=== PATIENT | male | born 1965 | race Caucasian/White ===

== ENCOUNTER 2019-05-21 16:50 | Inpatient (IN) | payer MEDICARE, OTHER ==
--- NOTE | 2019-05-21 16:57 | PDOC ---
Rapid Medical Evaluation Time Seen by Provider: 05/21/19 16:52 Medical Evaluation: 05/21/19 16:53 I have performed a brief in-person evaluation of this patient. The patient presents with a chief complaint of:Lower abd pain today. No dysuria , change in BM, n/v/f/c. Denies any pmhx Pertinent physical exam findings:Unremarkable I have ordered the following:labs/UA The patient will proceed to the ED for further evaluation. Discharge Disposition - Diagnosis Abdominal pain Qualifiers: Abdominal location: unspecified location Qualified Code(s): R10.9 - Unspecified abdominal pain - Referrals - Patient Instructions - Post Discharge Activity
[2019-05-21] MEDS ORDERED: SODIUM CHLORIDE 1,000 ML IV STA (18:02)
--- NOTE | 2019-05-21 18:02 | PDOC ---
History of Present Illness - General Chief Complaint: Pain, Acute Stated Complaint: ABD PAIN Time Seen by Provider: 05/21/19 16:52 Past History - Travel Traveled outside of the country in the last 30 days: No Close contact w/someone who was outside of country & ill: No - Past Medical History Allergies/Adverse Reactions: Allergies Allergy/AdvReac Type Severity Reaction Status Date / Time No Known Allergies Allergy Verified 05/21/19 19:07 Home Medications: Ambulatory Orders Metformin HCl [Glucophage] 500 mg PO BID 05/22/19 - Suicide/Smoking/Psychosocial Hx Smoking History: Never smoked Hx Alcohol Use: No Drug/Substance Use Hx: No Review of Systems - Review of Systems Able to Perform ROS?: Yes Comments:: 05/21/19 18:31 CONSTITUTIONAL: Absent: fever, chills, diaphoresis, generalized weakness, malaise, loss of appetite HEENT: Absent: rhinorrhea, nasal congestion, throat pain, throat swelling, difficulty swallowing, mouth swelling, ear pain, eye pain, visual Changes CARDIOVASCULAR: Absent: chest pain, loss of consciousness, palpitations, irregular heart rate, peripheral edema RESPIRATORY: Absent: cough, shortness of breath, dyspnea with exertion, orthopnea, wheezing, stridor, hemoptysis GASTROINTESTINAL: Present: abdominal pain Absent: abdominal distension, nausea, vomiting, diarrhea, constipation, melena, hematochezia GENITOURINARY: Absent: dysuria, frequency, urgency, hesitancy, hematuria, flank pain, genital pain MUSCULOSKELETAL: Absent: myalgia, arthralgia, joint swelling SKIN: Absent: rash, itching, pallor HEMATOLOGIC/IMMUNOLOGIC: Absent: easy bleeding, easy bruising, lymphadenopathy, frequent infections ENDOCRINE: Absent: unexplained weight gain, unexplained weight loss, heat intolerance, cold intolerance NEUROLOGIC: Absent: headache, focal weakness or paresthesias, dizziness, unsteady gait, seizure, mental status changes, bladder or bowel incontinence PSYCHIATRIC: Absent: anxiety, depression, suicidal or homicidal ideation, hallucinations. Is the patient limited Chinese proficient: No *Physical Exam - Vital Signs Last Vital Signs Temp Pulse Resp BP Pulse Ox 98.3 F 79 18 140/85 97 05/21/19 16:55 05/21/19 16:55 05/21/19 16:55 05/21/19 16:55 05/21/19 16:55 - Physical Exam Comments: 05/21/19 18:31 GENERAL: Well developed, well nourished. Awake and alert. No acute distress. HEENT: Normocephalic, atraumatic. PERRLA, EOMI. No conjunctival pallor. Sclera are non- icteric. Moist mucous membranes. Oropharynx is clear. NECK: Supple. Full ROM. No JVD. Carotid pulses 2+ and symmetric, without bruits. No thyromegaly. No lymphadenopathy. CARDIOVASCULAR: Regular rate and rhythm. No murmurs, rubs, or gallops. Distal pulses are 2+ and symmetric. PULMONARY: No evidence of respiratory distress. Lungs clear to auscultation bilaterally. No wheezing, rales or rhonchi. ABDOMINAL: TTP of the R lower quadrant into the R adnexal area, with palpable mass which is non-reducible. Guarding of the RLQ. Soft. Non-distended. No organomegaly. Normoactive bowel sounds. MUSCULOSKELETAL Normal range of motion at all joints. No bony deformities or tenderness. No CVA tenderness. EXTREMITIES: No cyanosis. No clubbing. No edema. No calf tenderness. SKIN: Warm and dry. Normal capillary refill. No rashes. No jaundice. NEUROLOGICAL: Alert, awake, appropriate. Cranial nerves 2-12 intact. No deficits to light touch and temperature in face, upper extremities and lower extremities. No motor deficits in the in face, upper extremities and lower extremities. Normoreflexic in the upper and lower extremities. Normal speech. Toes are down- going bilaterally. Gait is normal without ataxia. PSYCHIATRIC: Cooperative. Good eye contact. Appropriate mood and affect. ED Treatment Course - LABORATORY CBC & Chemistry Diagram: 05/22/19 01:05 05/21/19 18:00 Medical Decision Making - Medical Decision Making 05/21/19 19:25 The patient is a 53-year-old male with past medical history of non-insulin dependent diabetes, who presents to the ER today with 2 weeks of right lower abdominal pain. He states that he feels like a lump is there. He states that the pain is consistently gotten worse over the last 2 weeks. He denies urinary symptoms, fever. His last bowel movement was 11am this morning. Denies fevers, chills, nausea, vomiting, urinary symptoms, diarrhea and constipation. A/P: Lower quadrant pain On exam patient with a nonreducible mass over the right lower quadrant into the right adnexal region. This is very tender to palpation. Suspect hernia, strangulated versus incarcerated? Basic labs, lactic acid, CTAP with oral contrast ordered Dr. Prieto made aware of patient Anticipated admission. Sign out given to DL Miner Pt finished drinking contrast at 19:25 *DC/Admit/Observation/Transfer Diagnosis at time of Disposition: Inguinal hernia, SBO (small bowel obstruction) - Discharge Dispostion Condition at time of disposition: Improved - Referrals - Patient Instructions - Post Discharge Activity
[2019-05-21 18:14] LABS: BASO % 0.3 % (0-2.0); EOS % 0.1 % (0-4.5); HEMATOCRIT 51.6 % (35.4-49); HEMOGLOBIN 17.6 GM/dL (11.7-16.9); LYMPH % 7.1 % (8-40); MCH 31.2 pg (25.7-33.7); MCHC 34.1 g/dl (32.0-35.9); MEAN CELL VOLUME 91.4 fl (80-96); MEAN PLT VOLUME 9.8 fl (7.5-11.1); MONO % 3.4 % (3.8-10.2); NEUT % 89.1 % (42.8-82.8); PLATELET COUNT 166 K/MM3 (134-434); RBC 5.64 M/mm3 (4.00-5.60); RDW 13.4 % (11.9-15.9); WHITE BLOOD COUNT 14.9 K/mm3 (4.0-10.0)
[2019-05-21 18:32] LABS: INR 1.07 (0.83-1.09); PROTHROMBIN TIME (PATIENT) 12.6 SEC (9.7-13.0)
[2019-05-21 18:50] LABS: BILIRUBIN,TOTAL 0.7 mg/dL (0.2-1); BLOOD UREA NITROGEN 17.8 mg/dL (7-18); CREATININE 0.9 mg/dL (0.55-1.3); TOT PROT 8.1 g/dl (6.4-8.2)
[2019-05-21 19:00] LABS: EPI CELLS 0.3 /HPF (0-5/HPF); HYALINE CASTS 1 /lpf (0-8); PH,URINE 5.5 (5.0-8.0); URINE APPEARANCE CLEAR; URINE BACTERIA 1.5 /hpf (NEGATIVE); URINE BILIRUBIN NEGATIVE (NEGATIVE); URINE COLOR YELLOW; URINE GLUCOSE (UA) 3+ (NEGATIVE); URINE KETONE TRACE (NEGATIVE); URINE LEUK ESTERASE NEGATIVE (NEGATIVE); URINE NITRITE NEGATIVE (NEGATIVE); URINE PROTEIN 1+ (NEGATIVE); URINE RBC 1 /hpf (0-4); URINE WBC 0 /hpf (0-5)
[2019-05-21] MEDS ORDERED: morphine CARPU-JECT 4 MG/1 ML DISP.SYRIN IVPUSH ONE (19:45)
--- NOTE | 2019-05-21 19:47 | PDOC ---
*Physical Exam - Vital Signs Last Vital Signs Temp Pulse Resp BP Pulse Ox 98.3 F 79 18 140/85 97 05/21/19 16:55 05/21/19 16:55 05/21/19 16:55 05/21/19 16:55 05/21/19 16:55 ED Treatment Course - LABORATORY CBC & Chemistry Diagram: 05/21/19 18:00 05/21/19 18:00 - ADDITIONAL ORDERS Additional order review: Laboratory Results 05/21/19 05/21/19 05/21/19 18:11 18:05 18:00 PT with INR 12.60 INR 1.07 Sodium 136 Potassium 4.0 Chloride 102 Carbon Dioxide 27 Anion Gap 8 BUN 17.8 Creatinine 0.9 Est GFR (CKD-EPI)AfAm 114.21 Est GFR (CKD-EPI)NonAf 98.54 Random Glucose 220 H Calcium 9.0 Total Bilirubin 0.7 AST 17 ALT 31 Alkaline Phosphatase 88 Total Protein 8.1 Albumin 4.0 Urine Color Yellow Urine Appearance Clear Urine pH 5.5 Ur Specific [place] 1.038 H Urine Protein 1+ H Urine Glucose (UA) 3+ H Urine Ketones Trace H Urine Blood Negative Urine Nitrite Negative Urine Bilirubin Negative Urine Urobilinogen 1.0 Ur Leukocyte Esterase Negative Urine WBC (Auto) 0 Urine RBC (Auto) 1 Urine Casts (Auto) 1 U Epithel Cells (Auto) 0.3 Urine Bacteria (Auto) 1.5 05/21/19 18:00 RBC 5.64 H MCV 91.4 MCHC 34.1 RDW 13.4 MPV 9.8 Neutrophils % 89.1 H Lymphocytes % 7.1 L Monocytes % 3.4 L Eosinophils % 0.1 Basophils % 0.3 - Medications Given in the ED: ED Medications Discontinued Medications Generic Name Dose Route Start Last Admin Trade Name Freq PRN Reason Stop Dose Admin Sodium Chloride 1,000 mls @ 1,000 mls/hr 05/21/19 18:02 05/21/19 18:59 Normal Saline - IV 05/21/19 19:01 1,000 mls/hr ASDIR STA Administration Medical Decision Making - Medical Decision Making Patient signed out to me by DL Caceres Patient pending CT A/P to r/o possible incarcerated vs strangulated hernia Patient mentions stilling having pain, currently 07/10 Will give Morphine [address] A/P around 9 PM 05/21/19 19:45 CT A/P showed R inguinoscrotal hernia with small bowel and proximal SBO; also shows small portion of urinary bladder herniating into R inguinal canal D/W Dr. Prieto, who recommends also involving urology Urology paged x3, pending to hear back 05/21/19 23:[address] Morris, who states nothing urgent to do for now; will see patient tomorrow Will admit patient 05/21/19 23:30 *DC/Admit/Observation/Transfer Diagnosis at time of Disposition: SBO (small bowel obstruction) Inguinal hernia Qualifiers: Obstruction and gangrene presence: without obstruction or gangrene Laterality: unilateral Recurrence: non-recurrent Qualified Code(s): K40.90 - Unilateral inguinal hernia, without obstruction or gangrene, not specified as recurrent - Discharge Dispostion Condition at time of disposition: Stable Decision to Admit order: Yes - Referrals Referrals: Renita Zimmer MD [Primary Care Provider] - - Patient Instructions - Post Discharge Activity
[2019-05-21] MEDS ORDERED: morphine SULFATE 4 MG/ML VIAL ONE (20:12)
--- NOTE | 2019-05-21 23:37 | PN ---
Teaching Attending Note Name of Resident: Jonah Foreman ATTENDING PHYSICIAN STATEMENT I saw and evaluated the patient. I reviewed the resident's note and discussed the case with the resident. I agree with the resident's findings and plan as documented. SUBJECTIVE: Patient is a 53 year old man with PMH of NIDDM who presents to the ER with 2 weeks of right lower abdominal pain. He states that he feels like a lump is there. He states that the pain has consistently gotten worse over the last 2 weeks. He denies urinary symptoms, fever. His last bowel movement was 11 am toady and it was normal - soft, brown with no blood. Denies fevers, chills, nausea, vomiting, urinary symptoms, diarrhea and constipation. No prior abdominal surgery. Denies any illicit drug use or ingestion of unusual or street food. OBJECTIVE: Alert Vital Signs Period Temp Pulse Resp BP Sys/Vinson Pulse Ox Last 24 Hr 98.3 F-98.3 F 70-79 16-18 133-140/70-85 97 HEENT: No Jaundice, eye redness or discharge, PERRLA, EOMI. Normocephalic, atraumatic. External ears are normal and hearing is grossly intact. No nasal discharge. Neck: Supple, nontender. No palpable adenopathy or thyromegaly. No JVD Chest: Good effort. Clear to auscultation and percussion. Heart: Regular. No S3, rub or murmur Abdomen: Not distended, soft, nonreducible mass over the right lower quadrant into the right adnexal region - tender to palpation; no HSM. No rebound or guarding. Normal bowel sounds. Ext: Peripheral pulses intact. No leg edema. Skin: Warm and dry. No petechiae, rash or ecchymosis. Neuro: Alert. Oriented x3. CN 2-12 grossly intact. Sensation grossly intact in all four extremities and DTR are symmetric. Psych: Appropriate mood and affect. Good insight. Abnormal Lab Results 05/21/19 05/21/19 05/21/19 18:00 18:00 18:11 WBC 14.9 H RBC 5.64 H Hgb 17.6 H Hct 51.6 H Absolute Neuts (auto) 13.3 H Neutrophils % 89.1 H Lymphocytes % 7.1 L Monocytes % 3.4 L Random Glucose 220 H Ur Specific [place] 1.038 H Urine Protein 1+ H Urine Glucose (UA) 3+ H Urine Ketones Trace H ASSESSMENT AND PLAN: 1. Small bowel obstruction - CT scan of Abdomen/Pelvis with IV and PO contrast showed right inguinoscrotal hernia with small bowel and proximal Small bowel obstruction; also shows small portion of urinary bladder herniating into R inguinal canal. ER staff discussed case with both the surgeon and the urologist who will see the patient in the morning. Will use IV morphine for pain control, get EKG, CXR and lactic acid level. Erythrocytosis (?hemoconcentration) and increased urine specific gravity signal dehydration possibly due to osmotic diuresis induced by hyperglycemia. Patient got IV NS and IV mrophine in the ER. Will continue IV NS and repeat CBC. Leukocytosis is unexplained - may be due to stress. He is afebrile and does not have tachycardia. There is no obvious source of infection. Will not give antibiotics at this time - will repeat CBC. 2. Uncontrolled DM For now, we will hold the home diabetes drugs and implement sliding scale insulin regimen. Provide comprehensive diabetes care with patient teaching and counseling about the importance of adherence to prescribed diabetes regimen, euglycemia, eye care and foot care. 3. Overweight - Counseled on the risks associated with being overweight. Will provide patient all the necessary assistance, counseling and positive reinforcement to facilitate weight loss. Consult brush painter. 4. DVT prophylaxis - SCD for now i case he needs surgery; Lovenox 40 mg SQ q 24 hours post ?procedure. 5. Advance directives - Full code
--- NOTE | 2019-05-22 00:12 | CONSULT ---
Consult Consult Specialty:: General Surgery Reason for Consultation:: incarcerated right inguinal hernia - History of Present Illness Chief Complaint: right groin pain History of Present Illness: 53 yo male PMH NIDDM who presented to ED due to pain and swelling in his right groin. He states that he has never experienced this before other than a brief episode in the same area approximately 2 weeks ago which remitted on its own. Pt states he feels like a lump is in his groin. he reports that it first occured at work, he works as an automobile repossessor. Pain is constant and sharp. Last bowel movement was this am around 11. Patient denies fever, nausea/vomiting/ fever/chills, urinary symptoms, or constipation. we were asked to assess. - History Source History Provided By: Patient, Medical Record Limitations to Obtaining History: No Limitations - Alcohol/Substance Use Hx Alcohol Use: No - Smoking History Smoking history: Never smoked Home Medications - Allergies Allergies/Adverse Reactions: Allergies Allergy/AdvReac Type Severity Reaction Status Date / Time No Known Allergies Allergy Verified 05/21/19 19:07 - Home Medications Home Medications: Ambulatory Orders Metformin HCl [Glucophage] 500 mg PO BID 05/22/19 Review of Systems - Review of Systems Constitutional: denies: Chills, Fever Eyes: denies: Blind Spots, Other HENT: denies: Difficult Swallowing, Toothache Neck: denies: Decreased ROM, Tenderness Cardiovascular: denies: Chest Pain, Palpitations Respiratory: denies: Cough, SOB Gastrointestinal: denies: Abdominal Pain, Constipation, Diarrhea Genitourinary: denies: Discharge, Dysuria Musculoskeletal: denies: Extremity Pain, Muscle Pain Integumentary: denies: Eczema, Lump, Pruritis Neurological: denies: Syncope, Tremors Endocrine: denies: Unexplained Weight Gain, Unexplained Weight Loss Hematology/Lymphatic: denies: Easily Bruised, Excessive Bleeding Psychiatric: denies: Anxiety, Depression Physical Exam Vital Signs: Vital Signs Temperature 98.3 F 05/21/19 20:20 Pulse Rate 70 05/21/19 20:20 Respiratory Rate 16 05/21/19 20:20 Blood Pressure 133/70 05/21/19 20:20 O2 Sat by Pulse Oximetry (%) 97 05/21/19 16:55 Vital Signs Period Temp Pulse Resp BP Sys/Vinson Pulse Ox Last 24 Hr 98.3 F-98.6 F 60-79 16-20 133-148/70-85 95-97 Intake & Output 05/21/19 05/22/19 05/22/19 23:59 07:59 15:59 Intake Total 415 1000 Balance 415 1000 Weight 190 lb 188 lb 9 oz Intake: IV 365 1000 LACTATED RINGERS SOLUTION 365 1000 1,000 ml In 1,000 ml @ 83 mls/hr IV ASDIR JODIE Rx #:[id number] IVPB 50 Oral 0 Other: Voiding Method Urinal Urinal # Unmeasured Voids Void 2 Height 5 ft 7 in 5 ft 7 in Body Mass Index (BMI) 29.7 29.5 Weight Measurement Method Built in [facility] Constitutional: Yes: Well Nourished, No Distress, Calm Eyes: Yes: Conjunctiva Clear, EOM Intact HENT: Yes: Atraumatic, Normocephalic Neck: Yes: Supple, Trachea Midline Cardiovascular: Yes: Regular Rate and Rhythm, S1, S2 Respiratory: Yes: Regular, CTA Bilaterally Gastrointestinal: Yes: Normal Bowel Sounds, Soft, Abdomen, Obese, Distention, Hernia (Right inguinal hernia), Tenderness ...Rectal Exam: Yes: Sphincter Tone Normal. No: Hemorrhoids/External, Hemorrhoids/Internal, Mass Renal/: No: CVA Tenderness - Left, CVA Tenderness - Right Musculoskeletal: No: Muscle Pain, Muscle Weakness Extremities: No: Cool, Cyanosis Edema: No Peripheral Pulses WNL: Yes Integumentary: No: Jaundice, Laceration Neurological: Yes: Alert, Oriented Psychiatric: Yes: Alert, Oriented Labs: CBC, BMP 05/21/19 18:00 05/21/19 18:00 Imaging - Results Cat Scan: Report Reviewed, Image Reviewed (loop of intestines and a corner of the bladder) Problem List - Problems (1) Incarcerated right inguinal hernia Assessment/Plan: 53 yo female with an incarcerated right inguinal hernia acute NPO and IVF hydration IV antibiotics OR for right inguinal hernia repair with mesh, possible bowel ressection Discussed with patient risks, benefits and alternatives of laparoscopic possible open ectomy, including but not limited to bleeding, infection, injury to adjacent structures, leak or injury, intraabdominal abscess, incisional hernia, need for further procedures, ; alternatives include antibiotics, delayed or no surgery - risks of this include failure of nonoperative therapy, perforation, sepsis, recurrence, . Patient desires to proceed with operation - will take to OR for above. Informed consent signed for same. Thank you for the opportunity to participate in the care of this patient. Discussed with patient risks, benefits and alternatives of laparoscopic possible open ectomy, including but not limited to bleeding, infection, injury to adjacent structures, leak or injury, intraabdominal abscess, incisional hernia, need for further procedures, ; alternatives include antibiotics, delayed or no surgery - risks of this include failure of nonoperative therapy, perforation, sepsis, recurrence, . Patient desires to proceed with operation - will take to OR for above. Informed consent signed for same. Code(s): K40.30 - UNIL INGUINAL HERNIA, W OBST, W/O GANGR, NOT SPCF RECUR (2) Diabetes Code(s): E11.9 - TYPE 2 DIABETES MELLITUS WITHOUT COMPLICATIONS Qualifiers: Diabetes mellitus type: type 2 (3) Work related injury Code(s): Y99.0 - CIVILIAN ACTIVITY DONE FOR INCOME OR PAY (4) Right groin pain Code(s): R10.31 - RIGHT LOWER QUADRANT PAIN (5) SBO (small bowel obstruction) Code(s): K56.609 - UNSP INTESTNL OBST, UNSP TO PARTIAL VERSUS COMPLETE OBST
--- NOTE | 2019-05-22 00:24 | HP ---
CHIEF COMPLAINT: Right lower abdominal pain PCP: Dr Zimmer HISTORY OF PRESENT ILLNESS: Pt is a 53 y/o M with a significant past medical history of NIDDM who presented to [facility] due to pain and swelling in his right groin. Pt states that he has never experienced this before other than a brief episode in the same area approximately 2 weeks ago which remitted on its own. Pt states he feels like a lump is in his groin. Pain is constant and sharp. Last bowel movement was this am around 11. Pt denies fever, nausea/vomiting/fever/chills, urinary symptoms, or constipation. FH- Father Stroke. Mother Heart Disease Social Hx: Denies tobacco use. Social Drinker Surg Hx Denies any previous surgeries Allergies: Denies ER course was notable for: (1) CTAP--> R inguinoscrotal hernia containing small bowel w/ resultant proximal small bowel obstruction. Small portion of urinary bladder herniates into right inguinal canal. Herniated portion demonstrates a thickened appearance which may represent edema due to herniation (Versus coexisting inflammatory vs neoplastic disease.) (2) WBC 14.9 (3) Urine Glucose 3+ HOME MEDICATIONS: REVIEW OF SYSTEMS CONSTITUTIONAL: Absent: fever, chills, diaphoresis, generalized weakness, malaise, loss of appetite, weight change HEENT: Absent: rhinorrhea, nasal congestion, throat pain, throat swelling, difficulty swallowing, mouth swelling, ear pain, eye pain, visual changes CARDIOVASCULAR: Absent: chest pain, syncope, palpitations, irregular heart rate, lightheadedness , peripheral edema RESPIRATORY: Absent: cough, shortness of breath, dyspnea with exertion, orthopnea, wheezing, stridor, hemoptysis GASTROINTESTINAL: PRESENT: abdominal pain GENITOURINARY: Absent: dysuria, frequency, urgency, hesitancy, hematuria, flank pain, genital pain MUSCULOSKELETAL: Absent: myalgia, arthralgia, joint swelling, back pain, neck pain SKIN: Absent: rash, itching, pallor HEMATOLOGIC/IMMUNOLOGIC: Absent: easy bleeding, easy bruising, lymphadenopathy, frequent infections ENDOCRINE: Absent: unexplained weight gain, unexplained weight loss, heat intolerance, cold intolerance NEUROLOGIC: Absent: headache, focal weakness or paresthesias, dizziness, unsteady gait, seizure, mental status changes, bladder or bowel incontinence PSYCHIATRIC: Absent: anxiety, depression, suicidal or homicidal ideation, hallucinations. PHYSICAL EXAMINATION Vital Signs - 24 hr 05/21/19 05/21/19 16:55 20:20 Temperature 98.3 F 98.3 F Pulse Rate 79 Pulse Rate [ 70 Right Radial] Respiratory 18 16 Rate Blood Pressure 140/85 Blood Pressure 133/70 [Left Arm] O2 Sat by Pulse 97 Oximetry (%) GENERAL: NAD HEAD: Normal with no signs of trauma. EYES: EOMI Sclera clear EARS, NOSE, THROAT: MMM LUNGS: CTAB HEART: RRR S1S2 ABDOMEN: Non-reproducible R inguinal hernia. TTP. MUSCULOSKELETAL: FROM Throughout. LOWER EXTREMITIES: No CCE. Venous Stasis b/l lower extremities NEUROLOGICAL: Cranial nerves II-XII intact. Normal speech. Normal gait. SKIN: Warm, dry, normal turgor, no rashes or lesions noted, normal capillary refill. Laboratory Results - last 24 hr 05/21/19 05/21/19 05/21/19 18:00 18:00 18:01 WBC 14.9 H RBC 5.64 H Hgb 17.6 H Hct 51.6 H MCV 91.4 MCH 31.2 MCHC 34.1 RDW 13.4 Plt Count 166 MPV 9.8 Absolute Neuts (auto) 13.3 H Neutrophils % 89.1 H Lymphocytes % 7.1 L Monocytes % 3.4 L Eosinophils % 0.1 Basophils % 0.3 Nucleated RBC % 0 PT with INR 12.60 INR 1.07 Sodium 136 Potassium 4.0 Chloride 102 Carbon Dioxide 27 Anion Gap 8 BUN 17.8 Creatinine 0.9 Est GFR (CKD-EPI)AfAm 114.21 Est GFR (CKD-EPI)NonAf 98.54 Random Glucose 220 H Calcium 9.0 Total Bilirubin 0.7 AST 17 ALT 31 Alkaline Phosphatase 88 Total Protein 8.1 Albumin 4.0 Urine Color Urine Appearance Urine pH Ur Specific [place] Urine Protein Urine Glucose (UA) Urine Ketones Urine Blood Urine Nitrite Urine Bilirubin Urine Urobilinogen Ur Leukocyte Esterase Urine WBC (Auto) Urine RBC (Auto) Urine Casts (Auto) U Epithel Cells (Auto) Urine Bacteria (Auto) 05/21/19 18:11 WBC RBC Hgb Hct MCV MCH MCHC RDW Plt Count MPV Absolute Neuts (auto) Neutrophils % Lymphocytes % Monocytes % Eosinophils % Basophils % Nucleated RBC % PT with INR INR Sodium Potassium Chloride Carbon Dioxide Anion Gap BUN Creatinine Est GFR (CKD-EPI)AfAm Est GFR (CKD-EPI)NonAf Random Glucose Calcium Total Bilirubin AST ALT Alkaline Phosphatase Total Protein Albumin Urine Color Yellow Urine Appearance Clear Urine pH 5.5 Ur Specific [place] 1.038 H Urine Protein 1+ H Urine Glucose (UA) 3+ H Urine Ketones Trace H Urine Blood Negative Urine Nitrite Negative Urine Bilirubin Negative Urine Urobilinogen 1.0 Ur Leukocyte Esterase Negative Urine WBC (Auto) 0 Urine RBC (Auto) 1 Urine Casts (Auto) 1 U Epithel Cells (Auto) 0.3 Urine Bacteria (Auto) 1.5 ASSESSMENT/PLAN: Pt is a 53 y/o M with a significant past medical history of NIDDM who presented to [facility] due to pain and swelling in his right groin. # Right Inguinoscrotal Hernia w/ SBO -CTAP---> R inguinoscrotal hernia containing small bowel w/ resultant proximal small bowel obstruction. Small portion of urinary bladder herniates into right inguinal canal. Herniated portion demonstrates a thickened appearance which may represent edema due to herniation (Versus coexisting inflammatory vs neoplastic disease.) -Surgery and Urology on board. Will evaluate patient in am. No acute surgical intervention required. -NPO -LR@83cc/hr -Ketorolac 15 mg Q6H PRN -EKG -CBC, BMP in am. Lactic Acid level. #FEN -LR@83cc/hr -Monitor Electrolytes -NPO #DVT ppx: -SCDs #Dispo -Med-Surg Visit type - Emergency Visit Emergency Visit: Yes ED Registration Date: 05/21/19 Care time: The patient presented to the Emergency Department on the above date and was hospitalized for further evaluation of their emergent condition. - New Patient This patient is new to me today: Yes Date on this admission: 05/22/19 - Critical Care Critical Care patient: No
[2019-05-22] MEDS ORDERED: KETOROLAC TROMETHAMINE 15 MG/ML VIAL ONE (00:51)
[2019-05-22] MEDS: KETOROLAC TROMETHAMINE 15 MG/ML VIAL IVPUSH PRN ×2 (00:57→06:08)
[2019-05-22 01:43] LABS: HEMATOCRIT 50.8 % (35.4-49); HEMOGLOBIN 17.3 GM/dL (11.7-16.9); MCH 31.1 pg (25.7-33.7); MCHC 34.1 g/dl (32.0-35.9); MEAN CELL VOLUME 91.2 fl (80-96); MEAN PLT VOLUME 9.8 fl (7.5-11.1); PLATELET COUNT 157 K/MM3 (134-434); RBC 5.57 M/mm3 (4.00-5.60); RDW 13.3 % (11.9-15.9); WHITE BLOOD COUNT 14.8 K/mm3 (4.0-10.0)
[2019-05-22] MEDS: LACTATED RINGERS SOLUTION 1,000 ML/1,000 ML INFUS.BAG IV SCH ×3 (01:55→22:54)
[2019-05-22 02:12] VITALS: BMI 29.5
[2019-05-22] MEDS ORDERED: INSULIN (NOVOLOG) ASPART 100 UNITS/ML 10ML VIAL ONE (06:00)
[2019-05-22] MEDS: INSULIN SLIDING SCALE (NOVOLOG) 1 VIAL SQ SCH ×4 (06:10→22:55)
[2019-05-22] MEDS ORDERED: LACTATED RINGERS SOLUTION 1000 ML INFUS.BAG IV ONE (06:15)
[2019-05-22] MEDS ORDERED: PIPERACILLIN/TAZOB 4.5 GM 4.5 GM in DEXTROSE 5%-WATER 100 ML IVPB ONE (07:00)
[2019-05-22] MEDS ORDERED: DEXTROSE 5%-WATER 100 ML IVPB ONE (07:44)
[2019-05-22] MEDS ORDERED: PIPERACILLIN/TAZOBACTAM 4.5 GM VIAL IVPB ONE (07:44)
[2019-05-22 07:54] LABS: BASO % 0.4 % (0-2.0); EOS % 0.1 % (0-4.5); HEMATOCRIT 47.3 % (35.4-49); HEMOGLOBIN 16.5 GM/dL (11.7-16.9); LYMPH % 8.4 % (8-40); MCH 31.4 pg (25.7-33.7); MCHC 34.8 g/dl (32.0-35.9); MEAN CELL VOLUME 90.1 fl (80-96); MEAN PLT VOLUME 9.7 fl (7.5-11.1); MONO % 5.6 % (3.8-10.2); NEUT % 85.5 % (42.8-82.8); PLATELET COUNT 163 K/MM3 (134-434); RBC 5.24 M/mm3 (4.00-5.60); RDW 13.4 % (11.9-15.9); WHITE BLOOD COUNT 12.3 K/mm3 (4.0-10.0)
[2019-05-22 08:09] LABS: INR 1.11 (0.83-1.09); PROTHROMBIN TIME (PATIENT) 13.1 SEC (9.7-13.0)
[2019-05-22 08:12] LABS: ACTIVATED PTT 31.1 SECONDS (25.2-36.5)
[2019-05-22 08:20] LABS: ALBUMIN 3.4 g/dl (3.4-5.0); BILIRUBIN,TOTAL 1.1 mg/dL (0.2-1); BLOOD UREA NITROGEN 13.1 mg/dL (7-18); CALCIUM 8.7 mg/dL (8.5-10.1); CREATININE 0.8 mg/dL (0.55-1.3); MAGNESIUM 2.2 mg/dL (1.8-2.4); PHOSPHOROUS 3.2 mg/dL (2.5-4.9); POTASSIUM 3.8 mmol/L (3.5-5.1); TOT PROT 6.9 g/dl (6.4-8.2)
--- NOTE | 2019-05-22 10:36 | EKG ---
Test Reason : Blood Pressure : / mmHG Vent. Rate : 057 BPM Atrial Rate : 057 BPM P-R Int : 150 ms QRS Dur : 098 ms QT Int : 440 ms P-R-T Axes : 019 -23 008 degrees QTc Int : 428 ms SINUS BRADYCARDIA NO PREVIOUS ECGS AVAILABLE Confirmed by YOUNG EVERETT MD ([id number]) on 05/22/2019 10:35:46 AM Referred By: Confirmed By:YOUNG EVERETT MD
[2019-05-22] MEDS ORDERED: ONDANSETRON 4 MG/2 ML VIAL IVPB PRN ×2 (10:37→21:41)
[2019-05-22] MEDS: morphine SULFATE 4 MG/ML VIAL IVPUSH PRN ×2 (10:53→15:10)
--- NOTE | 2019-05-22 11:54 | PN ---
Progress Note, Physician Chief Complaint: Mr Jens Najera says he is feeling better after receiving pain medication. Was having nausea but improved with medication. No cp or sob. - Current Medication List Current Medications: Active Medications Lactated Ringer's (Lactated Ringers Solution) 1,000 ml in 1,000 mls @ 83 mls/ hr IV ASDIR JODIE Last Admin: 05/22/19 10:18 Dose: 83 mls/hr Insulin Aspart (Novolog Vial Sliding Scale -) 1 vial SQ ACHS [facility]; Protocol Last Admin: 05/22/19 11:25 Dose: Not Given Ketorolac Tromethamine (Toradol Injection -) 15 mg IVPUSH Q6H PRN PRN Reason: PAIN LEVEL 6-10 Stop: 05/27/19 00:27 Last Admin: 05/22/19 06:08 Dose: 15 mg Morphine Sulfate (Morphine Sulfate) 4 mg IVPUSH Q3H PRN PRN Reason: PAIN LEVEL 7 - 10 Last Admin: 05/22/19 10:53 Dose: 4 mg Ondansetron HCl (Zofran Injection) 4 mg IVPB Q8H PRN PRN Reason: NAUSEA Last Admin: 05/22/19 10:50 Dose: 4 mg - Objective Vital Signs: Vital Signs Temperature 36.9 C 05/22/19 09:09 Pulse Rate 60 05/22/19 09:09 Respiratory Rate 20 05/22/19 09:09 Blood Pressure 135/71 05/22/19 09:09 O2 Sat by Pulse Oximetry (%) 96 05/22/19 02:02 Constitutional: Yes: Well Nourished, No Distress, Calm Cardiovascular: Yes: Regular Rate and Rhythm. No: Gallop, Murmur, Rub Respiratory: Yes: Regular, CTA Bilaterally. No: Rales, Rhonchi, Wheezes Gastrointestinal: Yes: Normal Bowel Sounds, Soft. No: Distention, Tenderness Extremities: Yes: WNL Edema: No Labs: CBC, BMP 05/22/19 07:15 05/22/19 07:15 INR, PTT INR 1.11 (0.83-1.09) H 05/22/19 07:15 Problem List - Problems (1) Inguinal hernia Code(s): K40.90 - UNIL INGUINAL HERNIA, W/O OBST OR GANGR, NOT SPCF RECUR Qualifiers: Obstruction and gangrene presence: without obstruction or gangrene Laterality: unilateral Recurrence: non-recurrent Qualified Code(s): K40.90 - Unilateral inguinal hernia, without obstruction or gangrene, not specified as recurrent (2) SBO (small bowel obstruction) Code(s): K56.609 - UNSP INTESTNL OBST, UNSP TO PARTIAL VERSUS COMPLETE OBST Assessment/Plan -general surgery seen in consultation -urology consulted -will need surgical intervention -otherwise patient is stable -EKG reviewed -no signs or symptoms of ACS -low risk for intraoperative cardiac event, no further workup needed prior to surgery
--- NOTE | 2019-05-22 14:29 | CON.GU ---
Consult - History of Present Illness History of Present Illness: 53 yo male with right ing hernia, SBO. Noted to have a portion of bladder in hernia sac. No prior history. No voiding c/o. Awaiting surgical intervention - Alcohol/Substance Use Hx Alcohol Use: No - Smoking History Smoking history: Never smoked Home Medications - Allergies Allergies/Adverse Reactions: Allergies Allergy/AdvReac Type Severity Reaction Status Date / Time No Known Allergies Allergy Verified 05/21/19 19:07 - Home Medications Home Medications: Ambulatory Orders Metformin HCl [Glucophage] 500 mg PO BID 05/22/19 Review of Systems - Review of Systems Genitourinary: reports: No Symptoms Physical Exam- Vital Signs: Vital Signs Temperature 98.4 F 05/22/19 09:09 Pulse Rate 60 05/22/19 09:09 Respiratory Rate 20 05/22/19 09:09 Blood Pressure 135/71 05/22/19 09:09 O2 Sat by Pulse Oximetry (%) 96 05/22/19 02:02 Pelvis: Yes: Inguinal Hernia Right Penis: Yes: WNL Labs: CBC, BMP 05/22/19 07:15 05/22/19 07:15 Imaging - Results Cat Scan: Report Reviewed Problem List - Problems (1) Incarcerated right inguinal hernia Assessment/Plan: no intervention necessary at this time. Cystoscopy electively Code(s): K40.30 - UNIL INGUINAL HERNIA, W OBST, W/O GANGR, NOT SPCF RECUR
--- NOTE | 2019-05-22 17:49 | OP ---
Operative Note - Note: Operative Date: 05/22/19 Pre-Operative Diagnosis: incarcerated right inguinal hernia with small bowel obstruction Operation: right incarcerate inguinal hernia repair with mesh and plug Findings: incarcerated loop of small intestines right indirect inguinal hernia Implants: large perfix bard mesh 2"X4" mcgregor hole mesh polypropelene Post-Operative Diagnosis: Same as Pre-op Surgeon: José Prieto Customer Development Manager: Darinel Rosario Anesthesiologist/MANAGER ETHICS: Adry Beard Anesthesia: General Specimens Removed: none Estimated Blood Loss (mls): 10 Fluid Volume Replaced (mls): 1,300 Operative Report Dictated: Yes
[2019-05-22] MEDS ORDERED: CEFOXITIN SODIUM 1 GM IVPB ONE (18:46)
[2019-05-22] MEDS ORDERED: PROMETHAZINE HCL 25 MG/1 ML VIAL IVPB PRN (18:52)
[2019-05-22] MEDS ORDERED: LACTATED RINGERS SOLUTION 1,000 ML IV SCH (19:00)
[2019-05-22] MEDS ORDERED: PROPOFOL 20 ML ONE ×2 (19:02)
[2019-05-22] MEDS ORDERED: fentaNYL CITRATE 250 MCG/5 ML VIAL ONE (19:02)
[2019-05-22] MEDS ORDERED: ROCURONIUM BROMIDE 50 MG/5 ML VIAL ONE (19:02)
[2019-05-22] MEDS ORDERED: cefOXitin SODIUM 2 GM VIAL (RESTRICTED TO ID) IVPB ONE (19:15)
[2019-05-22] MEDS ORDERED: LIDOCAINE HCL/PF 2% SDV 5ML VIAL ONE (19:17)
[2019-05-22] MEDS ORDERED: HYDROmorphone HCl 2 MG/ML VIAL ONE (19:41)
[2019-05-22] MEDS ORDERED: NEOSTIGMINE METHYLSULFATE 0.5 MG/1 ML - 10 ML MDV ONE (19:44)
[2019-05-22] MEDS ORDERED: GLYCOPYRROLATE 0.2 MG/1 ML VIAL ONE (19:44)
[2019-05-22] MEDS ORDERED: ONDANSETRON 4 MG/2 ML VIAL ONE (19:46)
[2019-05-22] MEDS ORDERED: DEXAMETHASONE SOD PHOSPHATE 4 MG/1 ML VIAL ONE (19:46)
[2019-05-22] MEDS ORDERED: MINERAL OIL/PETROLATUM,WHITE 3.5 GM TUBE ONE (19:54)
[2019-05-22] MEDS ORDERED: morphine SULFATE 4 MG/ML VIAL IVPUSH PRN (21:41)
[2019-05-22] MEDS ORDERED: KETOROLAC TROMETHAMINE 15 MG/ML VIAL IVPUSH PRN (21:41)
[2019-05-23] MEDS: INSULIN SLIDING SCALE (NOVOLOG) 1 VIAL SQ SCH ×4 (06:01→21:21)
[2019-05-23] MEDS ORDERED: INSULIN (NOVOLOG) ASPART 100 UNITS/ML 10ML VIAL ONE ×2 (06:28→21:05)
[2019-05-23 08:56] LABS: BASO % 0.2 % (0-2.0); EOS % 0.1 % (0-4.5); HEMATOCRIT 45.9 % (35.4-49); HEMOGLOBIN 15.6 GM/dL (11.7-16.9); LYMPH % 8.7 % (8-40); MCH 31.2 pg (25.7-33.7); MEAN CELL VOLUME 91.6 fl (80-96); MEAN PLT VOLUME 9.7 fl (7.5-11.1); PLATELET COUNT 155 K/MM3 (134-434); RBC 5.02 M/mm3 (4.00-5.60); RDW 13.4 % (11.9-15.9); WHITE BLOOD COUNT 12.2 K/mm3 (4.0-10.0)
[2019-05-23 09:20] LABS: BLOOD UREA NITROGEN 14.1 mg/dL (7-18); CALCIUM 8.2 mg/dL (8.5-10.1); CREATININE 0.8 mg/dL (0.55-1.3); MAGNESIUM 2.1 mg/dL (1.8-2.4); PHOSPHOROUS 3.9 mg/dL (2.5-4.9)
--- NOTE | 2019-05-23 10:27 | PN ---
Progress Note, Physician Chief Complaint: right groin pain History of Present Illness: 53 yo male PMH NIDDM who presented to ED due to pain and swelling in his right groin. He states that he has never experienced this before other than a brief episode in the same area approximately 2 weeks ago which remitted on its own. stable overnight. - Current Medication List Current Medications: Active Medications Cefazolin Sodium/Dextrose (Ancef 2 Gm Premixed Ivpb -) 2 gm IVPB Q8H-IV JODIE Lactated Ringer's (Lactated Ringers Solution) 1,000 ml in 1,000 mls @ 83 mls/ hr IV ASDIR JODIE Last Admin: 05/22/19 22:54 Dose: 83 mls/hr Insulin Aspart (Novolog Vial Sliding Scale -) 1 vial SQ ACHS [facility]; Protocol Last Admin: 05/23/19 06:01 Dose: 2 units Ketorolac Tromethamine (Toradol Injection -) 15 mg IVPUSH Q6H PRN PRN Reason: PAIN LEVEL 1-5 Stop: 05/27/19 00:27 Morphine Sulfate (Morphine Sulfate) 4 mg IVPUSH Q3H PRN PRN Reason: PAIN LEVEL 6- 10 Last Admin: 05/23/19 05:58 Dose: 4 mg Ondansetron HCl (Zofran Injection) 4 mg IVPB Q8H PRN PRN Reason: NAUSEA - Objective Vital Signs: Vital Signs Temperature 98.6 F 05/23/19 09:07 Pulse Rate 78 05/23/19 09:07 Respiratory Rate 18 05/23/19 09:07 Blood Pressure 114/64 05/23/19 09:07 O2 Sat by Pulse Oximetry (%) 95 05/22/19 22:30 Vital Signs Period Temp Pulse Resp BP Sys/Vinson Pulse Ox Last 24 Hr 98.6 F-99.7 F 71-92 16-21 106-132/61-72 95-100 Constitutional: Yes: Well Nourished, No Distress, Calm, Obese Eyes: Yes: Conjunctiva Clear, EOM Intact HENT: Yes: Atraumatic, Normocephalic Neck: Yes: Supple, Trachea Midline Cardiovascular: Yes: Regular Rate and Rhythm, S1, S2 Respiratory: Yes: Regular, CTA Bilaterally Gastrointestinal: Yes: Normal Bowel Sounds, Soft ...Rectal Exam: Yes: Deferred Genitourinary: No: CVA Tenderness - Left, CVA Tenderness - Right Breast(s): No: Breast Implants, [place] Musculoskeletal: No: Muscle Pain, Muscle Weakness Extremities: No: Cool, Cyanosis Edema: No Peripheral Pulses WNL: Yes Peripheral Pulses: Left Radial: 2+, Right Radial: 2+, Left Doralis Pedis: 2+, Right Dorsalis Pedis: 2+, Left Femoral: 2+, Right Femoral: 2+ Integumentary: No: Jaundice, Tattoos Wound/Incision: Yes: Clean/Dry, Well Approximated, Dressing Dry and Intact Neurological: Yes: Alert, Oriented Psychiatric: Yes: Alert, Oriented Labs: CBC, BMP 05/23/19 08:30 05/23/19 08:15 INR, PTT INR 1.11 (0.83-1.09) H 05/22/19 07:15 Problem List - Problems (1) Incarcerated right inguinal hernia Assessment/Plan: 53 yo female with an incarcerated right inguinal hernia acute POD#1 s/p mesh repair of incarcerated right inguinal hernia diet as tolerated IV antibiotics 48 hours (ancef) adequate analgesia OOB encourge IS no heavy lifting remove dressing 05/24 discharge at the discretion of the primary team Discussed with patient risks, benefits and alternatives of laparoscopic possible open ectomy, including but not limited to bleeding, infection, injury to adjacent structures, leak or injury, intraabdominal abscess, incisional hernia, need for further procedures, ; alternatives include antibiotics, delayed or no surgery - risks of this include failure of nonoperative therapy, perforation, sepsis, recurrence, . Patient desires to proceed with operation - will take to OR for above. Informed consent signed for same. Code(s): K40.30 - UNIL INGUINAL HERNIA, W OBST, W/O GANGR, NOT SPCF RECUR (2) Diabetes Code(s): E11.9 - TYPE 2 DIABETES MELLITUS WITHOUT COMPLICATIONS Qualifiers: Diabetes mellitus type: type 2 (3) Work related injury Code(s): Y99.0 - CIVILIAN ACTIVITY DONE FOR INCOME OR PAY (4) Right groin pain Code(s): R10.31 - RIGHT LOWER QUADRANT PAIN (5) SBO (small bowel obstruction) Code(s): K56.609 - UNSP INTESTNL OBST, UNSP TO PARTIAL VERSUS COMPLETE OBST
[2019-05-23] MEDS: ceFAZolin 2 GRAM PREMIX BAG IVPB SCH ×2 (10:44→17:30)
--- NOTE | 2019-05-23 11:38 | PN ---
Progress Note, Physician Chief Complaint: Mr Jens Najera is without complaint today. Says he feels good. No cp, sob, n/ v. - Current Medication List Current Medications: Active Medications Cefazolin Sodium/Dextrose (Ancef 2 Gm Premixed Ivpb -) 2 gm IVPB Q8H-IV JODIE Last Admin: 05/23/19 10:44 Dose: 2 gm Lactated Ringer's (Lactated Ringers Solution) 1,000 ml in 1,000 mls @ 83 mls/ hr IV ASDIR JODIE Last Admin: 05/22/19 22:54 Dose: 83 mls/hr Insulin Aspart (Novolog Vial Sliding Scale -) 1 vial SQ ACHS JODIE; Protocol Last Admin: 05/23/19 06:01 Dose: 2 units Ketorolac Tromethamine (Toradol Injection -) 15 mg IVPUSH Q6H PRN PRN Reason: PAIN LEVEL 1-5 Stop: 05/27/19 00:27 Morphine Sulfate (Morphine Sulfate) 4 mg IVPUSH Q3H PRN PRN Reason: PAIN LEVEL 6- 10 Last Admin: 05/23/19 05:58 Dose: 4 mg Ondansetron HCl (Zofran Injection) 4 mg IVPB Q8H PRN PRN Reason: NAUSEA - Objective Vital Signs: Vital Signs Temperature 37.0 C 05/23/19 09:07 Pulse Rate 78 05/23/19 09:07 Respiratory Rate 18 05/23/19 09:07 Blood Pressure 114/64 05/23/19 09:07 O2 Sat by Pulse Oximetry (%) 95 05/22/19 22:30 Constitutional: Yes: Well Nourished, No Distress, Calm Cardiovascular: Yes: Regular Rate and Rhythm. No: Gallop, Murmur, Rub Respiratory: Yes: Regular, CTA Bilaterally. No: Rales, Rhonchi, Wheezes Gastrointestinal: Yes: Soft, Hypoactive Bowel Sounds. No: Distention, Tenderness Extremities: Yes: WNL Edema: No Labs: CBC, BMP 05/23/19 08:30 05/23/19 08:15 INR, PTT INR 1.11 (0.83-1.09) H 05/22/19 07:15 Problem List - Problems (1) Inguinal hernia Code(s): K40.90 - UNIL INGUINAL HERNIA, W/O OBST OR GANGR, NOT SPCF RECUR Qualifiers: Obstruction and gangrene presence: without obstruction or gangrene Laterality: unilateral Recurrence: non-recurrent Qualified Code(s): K40.90 - Unilateral inguinal hernia, without obstruction or gangrene, not specified as recurrent (2) SBO (small bowel obstruction) Code(s): K56.609 - UNSP INTESTNL OBST, UNSP TO PARTIAL VERSUS COMPLETE OBST Assessment/Plan -s/p inguinal hernia repair -continue empiric antibiotics -continue IVF -pain control per surgery -diabetic diet -FSBS and SSI -can restart metformin on discharge -dressing change tomorrow -can discharge when cleared from surgical standpoint
--- NOTE | 2019-05-23 12:15 | PN ---
Progress Note, Physician Chief Complaint: POD s/p repair of incarcerated Right inguinal hernia - Current Medication List Current Medications: Active Medications Cefazolin Sodium/Dextrose (Ancef 2 Gm Premixed Ivpb -) 2 gm IVPB Q8H-IV JODIE Last Admin: 05/23/19 10:44 Dose: 2 gm Lactated Ringer's (Lactated Ringers Solution) 1,000 ml in 1,000 mls @ 83 mls/ hr IV ASDIR JODIE Last Admin: 05/22/19 22:54 Dose: 83 mls/hr Insulin Aspart (Novolog Vial Sliding Scale -) 1 vial SQ ACHS [facility]; Protocol Last Admin: 05/23/19 11:41 Dose: 2 units Ketorolac Tromethamine (Toradol Injection -) 15 mg IVPUSH Q6H PRN PRN Reason: PAIN LEVEL 1-5 Stop: 05/27/19 00:27 Morphine Sulfate (Morphine Sulfate) 4 mg IVPUSH Q3H PRN PRN Reason: PAIN LEVEL 6- 10 Last Admin: 05/23/19 05:58 Dose: 4 mg Ondansetron HCl (Zofran Injection) 4 mg IVPB Q8H PRN PRN Reason: NAUSEA - Objective Vital Signs: Vital Signs Temperature 98.6 F 05/23/19 09:07 Pulse Rate 78 05/23/19 09:07 Respiratory Rate 18 05/23/19 09:07 Blood Pressure 114/64 05/23/19 09:07 O2 Sat by Pulse Oximetry (%) 95 05/22/19 22:30 Labs: CBC, BMP 05/23/19 08:30 05/23/19 08:15 INR, PTT INR 1.11 (0.83-1.09) H 05/22/19 07:15 Assessment/Plan Doing well s/p GA for repair of RIH. Minimal pain, no N/V, VSS. No anesthetic issues/complications noted.
[2019-05-23] MEDS: LACTATED RINGERS SOLUTION 1,000 ML/1,000 ML INFUS.BAG IV SCH (17:33)
[2019-05-24] MEDS: ceFAZolin 2 GRAM PREMIX BAG IVPB SCH (02:10)
[2019-05-24] MEDS: INSULIN SLIDING SCALE (NOVOLOG) 1 VIAL SQ SCH ×2 (06:03→12:12)
--- NOTE | 2019-05-24 06:05 | PN ---
Progress Note, Physician Chief Complaint: right groin pain History of Present Illness: 53 yo male PMH NIDDM who presented to ED due to pain and swelling in his right groin. He states that he has never experienced this before other than a brief episode in the same area approximately 2 weeks ago which remitted on its own. stable overnight. Wants to go home . - Current Medication List Current Medications: Active Medications Cefazolin Sodium/Dextrose (Ancef 2 Gm Premixed Ivpb -) 2 gm IVPB Q8H-IV JODIE Last Admin: 05/24/19 02:10 Dose: 2 gm Lactated Ringer's (Lactated Ringers Solution) 1,000 ml in 1,000 mls @ 83 mls/ hr IV ASDIR JODIE Last Admin: 05/23/19 17:33 Dose: 83 mls/hr Insulin Aspart (Novolog Vial Sliding Scale -) 1 vial SQ ACHS [facility]; Protocol Last Admin: 05/23/19 21:21 Dose: 2 units Ketorolac Tromethamine (Toradol Injection -) 15 mg IVPUSH Q6H PRN PRN Reason: PAIN LEVEL 1-5 Stop: 05/27/19 00:27 Morphine Sulfate (Morphine Sulfate) 4 mg IVPUSH Q3H PRN PRN Reason: PAIN LEVEL 6- 10 Last Admin: 05/23/19 05:58 Dose: 4 mg Ondansetron HCl (Zofran Injection) 4 mg IVPB Q8H PRN PRN Reason: NAUSEA - Objective Vital Signs: Vital Signs Temperature 98.2 F 05/24/19 05:55 Pulse Rate 78 05/24/19 05:55 Respiratory Rate 20 05/24/19 05:55 Blood Pressure 121/69 05/24/19 05:55 O2 Sat by Pulse Oximetry (%) 98 05/23/19 21:00 Vital Signs Period Temp Pulse Resp BP Sys/Vinson Pulse Ox Last 24 Hr 98.0 F-98.6 F 75-89 18-20 106-127/62-72 98-98 Constitutional: Yes: Well Nourished, No Distress, Calm Eyes: Yes: Conjunctiva Clear, EOM Intact HENT: Yes: Atraumatic, Normocephalic Neck: Yes: Supple, Trachea Midline Cardiovascular: Yes: Regular Rate and Rhythm, S1, S2 Respiratory: Yes: Regular, CTA Bilaterally Gastrointestinal: Yes: Normal Bowel Sounds, Soft, Tenderness (incisonal). No: Distention ...Rectal Exam: Yes: Deferred Genitourinary: No: CVA Tenderness - Left, CVA Tenderness - Right Breast(s): No: Mass, Skin Changes Musculoskeletal: No: Muscle Pain, Muscle Weakness Extremities: No: Cold, Cool, Cyanosis Edema: No Peripheral Pulses WNL: Yes Peripheral Pulses: Left Radial: 2+, Right Radial: 2+, Left Doralis Pedis: 2+, Right Dorsalis Pedis: 2+, Left Femoral: 2+, Right Femoral: 2+ Wound/Incision: Yes: Clean/Dry, Well Approximated, [place] Intact, Open to air Neurological: Yes: Alert, Oriented Psychiatric: Yes: Alert, Oriented Labs: CBC, BMP 05/23/19 08:30 05/23/19 08:15 INR, PTT INR 1.11 (0.83-1.09) H 05/22/19 07:15 Problem List - Problems (1) Incarcerated right inguinal hernia Assessment/Plan: 53 yo female with an incarcerated right inguinal hernia acute POD#2 s/p mesh repair of incarcerated right inguinal hernia Regular diet adequate analgesia OOB and encourge IS no heavy lifting please discharge home I will be away on 05/25 & 05/26 I am available by phone for questions, Dr. Rosario will be available for emergencies. Discussed with patient risks, benefits and alternatives of laparoscopic possible open ectomy, including but not limited to bleeding, infection, injury to adjacent structures, leak or injury, intraabdominal abscess, incisional hernia, need for further procedures, ; alternatives include antibiotics, delayed or no surgery - risks of this include failure of nonoperative therapy, perforation, sepsis, recurrence, . Patient desires to proceed with operation - will take to OR for above. Informed consent signed for same. Code(s): K40.30 - UNIL INGUINAL HERNIA, W OBST, W/O GANGR, NOT SPCF RECUR (2) Diabetes Code(s): E11.9 - TYPE 2 DIABETES MELLITUS WITHOUT COMPLICATIONS Qualifiers: Diabetes mellitus type: type 2 (3) Work related injury Code(s): Y99.0 - CIVILIAN ACTIVITY DONE FOR INCOME OR PAY (4) Right groin pain Code(s): R10.31 - RIGHT LOWER QUADRANT PAIN (5) SBO (small bowel obstruction) Code(s): K56.609 - UNSP INTESTNL OBST, UNSP TO PARTIAL VERSUS COMPLETE OBST
[2019-05-24 07:24] LABS: BASO % 0.4 % (0-2.0); EOS % 1.2 % (0-4.5); HEMATOCRIT 42.5 % (35.4-49); HEMOGLOBIN 14.6 GM/dL (11.7-16.9); MCH 31.3 pg (25.7-33.7); MCHC 34.4 g/dl (32.0-35.9); MEAN CELL VOLUME 90.9 fl (80-96); MEAN PLT VOLUME 9.9 fl (7.5-11.1); MONO % 8.8 % (3.8-10.2); NEUT % 75.6 % (42.8-82.8); PLATELET COUNT 141 K/MM3 (134-434); RBC 4.68 M/mm3 (4.00-5.60); RDW 13.1 % (11.9-15.9); WHITE BLOOD COUNT 10.4 K/mm3 (4.0-10.0)
[2019-05-24 08:20] LABS: BLOOD UREA NITROGEN 13.7 mg/dL (7-18); CALCIUM 7.8 mg/dL (8.5-10.1); CREATININE 0.7 mg/dL (0.55-1.3); POTASSIUM 3.6 mmol/L (3.5-5.1)
--- NOTE | 2019-05-24 12:24 | DS ---
Physical Exam: SUBJECTIVE: Patient seen and examined, tolerating diet well, moved his bowels, ambulating well, pain better, no complaints. OBJECTIVE: Vital Signs Period Temp Pulse Resp BP Sys/Vinson Pulse Ox Last 24 Hr 98.0 F-98.2 F 78-89 18-20 117-127/69-72 98 Intake & Output 05/21/19 05/22/19 05/23/19 05/24/19 23:59 23:59 23:59 23:59 Intake Total 4096 3196 1046 Output Total 310 1275 350 Balance 3786 1921 696 Weight 190 lb 188 lb 9 oz PHYSICAL EXAM GENERAL: The patient is awake, alert, and fully oriented, in no acute distress. HEAD: Normal with no signs of trauma. EYES: PERRL, extraocular movements intact, sclera anicteric, conjunctiva clear. ENT: Ears normal, nares patent, oropharynx clear without exudates, moist mucous membranes. NECK: Trachea midline, full range of motion, supple. LUNGS: Breath sounds equal, clear to auscultation bilaterally, no wheezes, no crackles, no accessory muscle use. HEART: Regular rate and rhythm, S1, S2 ABDOMEN: soft, RLQ horizontal incision with edin, no discharge erythema noted , minimal tenderness around incision site, otherwise, NT/ND, pos normoactive bowel sounds, no voluntary or involuntary guarding or rigidity EXTREMITIES: 2+ pulses, warm, well-perfused, no edema. NEUROLOGICAL: Cranial nerves II through XII grossly intact. Normal speech, Gait normal PSYCH: Normal mood, normal affect. SKIN: Warm, dry, normal turgor, no rashes or lesions noted. LABS Laboratory Results - last 24 hr 05/23/19 05/23/19 05/24/19 17:01 21:20 05:44 WBC 10.4 H RBC 4.68 Hgb 14.6 Hct 42.5 MCV 90.9 MCH 31.3 MCHC 34.4 RDW 13.1 Plt Count 141 MPV 9.9 Absolute Neuts (auto) 7.9 Neutrophils % 75.6 Lymphocytes % 14.0 D Monocytes % 8.8 Eosinophils % 1.2 D Basophils % 0.4 Nucleated RBC % 0 Sodium Potassium Chloride Carbon Dioxide Anion Gap BUN Creatinine Est GFR (CKD-EPI)AfAm Est GFR (CKD-EPI)NonAf POC Glucometer 195 162 Random Glucose Calcium Phosphorus Magnesium 05/24/19 05/24/19 05/24/19 05:44 06:02 12:08 WBC RBC Hgb Hct MCV MCH MCHC RDW Plt Count MPV Absolute Neuts (auto) Neutrophils % Lymphocytes % Monocytes % Eosinophils % Basophils % Nucleated RBC % Sodium 134 L Potassium 3.6 Chloride 101 Carbon Dioxide 25 Anion Gap 9 BUN 13.7 Creatinine 0.7 Est GFR (CKD-EPI)AfAm 126.64 Est GFR (CKD-EPI)NonAf 109.27 POC Glucometer 141 192 Random Glucose 124 H Calcium 7.8 L Phosphorus [address] A/p 05/21/2019: A right inguinoscrotal hernia is seen containing small bowel with resultant dilatation of several small bowel loops within the right abdomen and pelvis consistent with obstruction. The maximum dilated luminal diameter is approximately 2.7 cm. Within the right hemiscrotum the partially imaged herniated small bowel demonstrates no obvious wall edema or pneumatosis. Several mildly dilated vessels are seen within the right hemiscrotum presumably secondary to congestion. A small portion of the right ventrolateral aspect of the urinary bladder herniates into the ipsilateral inguinal ring. The urinary bladder wall in that region appears thickened which may be on the basis of edema ( versus representing concomitant neoplastic disease). Distal ileal bowel loops as well as the colon demonstrated a collapsed appearance. No evidence of pneumoperitoneum, abscess or free intraperitoneal fluid. The liver, spleen, pancreas, gallbladder, adrenal glands and kidneys demonstrate no discrete abnormality. There is no aortic aneurysm. No definite lymphadenopathy is identified. The visualized osseous structures demonstrate no obvious acute pathology. Impression: A right inguinoscrotal hernia is seen containing small bowel with resultant proximal small bowel obstruction. A small portion of the urinary bladder wall herniates into the right inguinal canal. The herniated portion demonstrates a thickened appearance which may represent edema due to herniation (versus coexisting inflammatory or neoplastic disease). HOSPITAL COURSE: Date of Admission:05/21/19 Date of Discharge: 05/24/19 Minutes to complete discharge: 40 Discharge Summary Reason For Visit: SMALL BOWEL OBSTRUCTION, INGUINAL HERNIA Current Active Problems Diabetes (Acute) Incarcerated right inguinal hernia (Acute) Inguinal hernia (Acute) Right groin pain (Acute) SBO (small bowel obstruction) (Acute) Work related injury (Acute) Hospital Course: 53 yom with PMHx of NIDDM, admitted with pain/swelling right groin, found with incarcerated right inguinal hernia with proximal small bowel obstruction. Patient had incarcerated inguinal hernia repair with mesh and plug. His post operative course was uncomplicated and is currently tolerating diet well with a bowel movement prior to dc and has been cleared from surgical standpoint for discharge. He was also see by urology given small portion of urinary bladder herniation in inguinal canal and advised outpatient follow up for cystoscopy. Condition: Stable - Instructions Diet, Activity, Other Instructions: Postoperative instructions: You had a right inguinal hernia repair with mesh and plug on 05/22/[address] José Prieto of [facility]. Activity: Resume your usual activities gradually, but no heavy exertion or lifting more than 10-15 pounds for 4-6 weeks. Remove dressings 48 hours after surgery, if they are not already off. You may shower daily starting then, just pat the incision areas dry. No bath or swimming until skin incisions have healed. Edin should not need to be recovered with any dressings, unless you have been told otherwise. Eat lightly at first, but advance to your usual diet as tolerated. Pain: For pain, you may use and alternate Tylenol (acetaminophen) 1-2 pills and/ or ibuprofen 200 mg (1-3 pills) every 6 hours each as needed; this means that you can take one OR the other at 3-hour intervals. If you are prescribed a Tylenol/narcotic combination for severe pain, use it instead of plain Tylenol as needed and switch back when your pain starts decreasing. Do not take more than 4000 mg of acetaminophen in a day. Take medications as prescribed or indicated on the labeling. Follow-up: Call Dr. Prieto office at [phone] to make your postop appointment (Friday in approximately 2 weeks after surgery as advised). Clinic is held in the [facility] on the first floor of [facility]. Call the office if you have: * increasing pain not responsive to pain medication * fever of 101F or higher * vomiting * unusual or increasing bleeding or drainage from wounds * increasing redness or swelling at wound sites * inability to urinate Also, see your primary medical doctor within 1-2 weeks. Outpatient urology follow up in [address] Morris to discuss cystoscopy and further testing once healed from surgery. Monitor blood sugars before meals and at bedtime over the next 1-2 weeks. maintain a diary and notify your doctor if < 75 or persistently > 140 or any reading > 350 noted. Referrals: Parish Morris MD [Staff Physician] - 3 Weeks José Prieto MD [Staff Physician] - 1 Week Disposition: HOME - Home Medications Comprehensive Discharge Medication List: Ambulatory Orders Metformin HCl [Glucophage] 500 mg PO BID 05/22/19 This patient is new to me today: Yes Date on this admission: 05/24/19 Emergency Visit: Yes ED Registration Date: 05/21/19 Care time: The patient presented to the Emergency Department on the above date and was hospitalized for further evaluation of their emergent condition. Critical Care patient: No - Discharge Referral [facility]erred to [facility] No
[2019-05-24 12:48] VITALS: BP 124/73; PULSE 75; TEMP 97.4
--- NOTE | 2019-05-24 21:51 | OP ---
DATE OF OPERATION: 05/22/2019 PREOPERATIVE DIAGNOSIS: Incarcerated right inguinal hernia with small-bowel obstruction. POSTOPERATIVE DIAGNOSIS: Incarcerated right inguinal hernia with small-bowel obstruction. PROCEDURE: Right incarcerated inguinal hernia repair with mesh and plug. ATTENDING SURGEON: José Prieto MD USABILITY SPECIALIST: Darinel Rosario MD ANESTHESIOLOGIST: SARAH Davila ANESTHESIOLOGIST TYPE: General. ESTIMATED BLOOD LOSS: 10 mL. INTRAVENOUS FLUID ADMINISTERED: 1300 mL. SPECIMENS SENT: None. IMPLANT: Large PerFix Bard mesh 2 x 4 keyhole with a large plug. BRIEF FINDINGS: Patient had an incarcerated loop of small intestines in the right indirect inguinal hernia. Contents appeared viable. INDICATION: Patient is a 53-year-old male. 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 He presented with an incarcerated right inguinal hernia. It started at work 2 days earlier, history of pain. He was counseled regarding the risks, benefits, and alternatives of surgical repair after a CT revealed that there was incarcerated loop of small intestines as well as an ear of bladder in this defect. He signed informed consent, was taken for the procedure. DESCRIPTION OF PROCEDURE: Patient was brought to the operating room. He was placed in supine position on the operating table. Lower extremities had SCDs placed to compression. Patient was induced with general anesthesia, endotracheally intubated. He had the anterior abdominal wall and right groin prepped and draped in standard surgical fashion, after clipping. After a formal timeout was completed, identifying the operative site and procedure, we began with a standard incision for a Micaela repair. A linear incision was scribed just above the inguinal ligament, incised with 15-blade scalpel, deepened and widened through the skin and subcutaneous tissue, was dissected down through Rosi fascia. The external oblique fiber was then opened towards the external ring. With the external ring contents exposed, they were encircled with a Bety drain and retracted laterally. We took our time then to dissect down on the anterolateral aspect to identify the spermatic cord structures as well, opened cremasteric fibers, allowing for a repair of the floor. The entire floor appeared weak and blousy. It was reduced, and when opening the indirect component of the hernia, we began to notice that there were sliding-type gastrointestinal contents as well as an ear of the bladder. All of the contents were from the spermatic cord structures, and they were reduced into the abdomen. There appeared to be lipomatous structures as well as sort of acute inflamed hernia sac. Once the contents were reduced, a small stay stitch of Vicryl 3-0 was used to close the floor temporarily and allow for the placement of a large plug from the PerFix to be introduced to keep the remaining hernia contents there. Once present, the plug was secured in 3 locations with 3-0 Vicryl stitch. We then used an onlay keyhole 2 x 4 inch mesh, first fastened to the pubic tubercle with 2-0 Prolene and then the inguinal ligament below, followed by the internal oblique and transversalis fibers superiorly. Once the floor was reconstructed, the cord structures were brought through the keyhole in the mesh and then tacked posteriorly and then tucked under the external oblique. Once this repair was complete and fixed with 2-0 Prolene, the area was irrigated, and the external oblique was then repaired towards the external ring with 0 Vicryl in running fashion. Once complete, the area was again irrigated and Rosi fascia was approximated, followed by approximation of the skin with deep dermal stitches and skin edin. The patient's testicle was reduced after a sterile dressing was placed. All counts were correct prior to the end of surgery. Patient was stable throughout and extubated in the operating room as well. MD CAMACHO Rae/[id number]
== END 2019-05-24 13:19 | disposition home or self-care (01) | DRG 228 ==
LOC: JER 16:50 → JERBED 23:32 → J6S 05-22 01:37
PROVIDERS: ADMIT Internal Medicine; ATTEND Hospitalist
PROC: 0YU50JZ Supplement Right Inguinal Region with Synthetic Substitute, Open Approach (ICD-10-PCS; principal; 2019-05-22 18:40)
DX: K40.30 Unilateral inguinal hernia, with obstruction, without gangrene, not specified as recurrent (principal); K56.699 Other intestinal obstruction unspecified as to partial versus complete obstruction; E11.65 Type 2 diabetes mellitus with hyperglycemia; E66.3 Overweight; Z68.29 Body mass index [BMI] 29.0-29.9, adult; R10.31 Right lower quadrant pain; D75.1 Secondary polycythemia; E86.0 Dehydration; D72.829 Elevated white blood cell count, unspecified
CPT/HCPCS: 36415; 74177-TC; 80048; 80053; 81003; 82962; 83605; 83735; 84100; 85025; 85027; 85610; 85730; 86850; 86900; 86901; 87086; 93005; 93010; 94760; 99283-25; J7030

== ENCOUNTER 2019-07-11 18:22 | Inpatient (IN) | payer MEDICARE, OTHER ==
--- NOTE | 2019-07-11 19:20 | PDOC ---
History of Present Illness - General Chief Complaint: Headache Stated Complaint: HEADACHE/NAUSEA Time Seen by Provider: 07/11/19 19:00 History Source: Patient - History of Present Illness Initial Comments: 07/11/19 19:15 Patient is a 53 year old male streaking of hernia repair and HTN complaints of FELIPE x 1 month. Feels like a weight over his head frontal and occiput associated with anxiety symptoms, dizzinessspinning, lightheaded, weakness, sweating, sensitively to noise. This headache is constant 8/10 pressure, better when in bed resting. He has symptoms mostly when sitting up and even if he holds still feels like things are moving. Occasionally, in the AM he has like a drip in the back of his throat which clears during the day. These symptoms started after his hernina repair on 05/21/19 but did not sandoval to get it evaluated because he thought it would go away. States he went to some hospital to get a head ct but due to insurance issues was not able to get it done. Has appointment on Friday07/14/19, [address]st [address] Dr. Le for his headache but for work related injury. Denies nausea, vomiting, fever, chills. PMHX: as above PSOCHX: neg etoh, durg, cig ALL: NKDA GENERAL/CONSTITUTIONAL: No fever or chills. (+) weakness. No weight change. HEAD, EYES, EARS, NOSE AND THROAT: No change in vision. No ear pain or discharge. No sore throat. CARDIOVASCULAR: (+) chest pain or shortness of breath. RESPIRATORY: No cough, wheezing, or hemoptysis. GASTROINTESTINAL: No nausea, vomiting, diarrhea or constipation. No rectal bleeding. GENITOURINARY: No dysuria, frequency, or change in urination. MUSCULOSKELETAL: No joint or muscle swelling or pain. No neck or back pain. SKIN AND BREASTS: No rash or easy bruising. NEUROLOGIC: (+) headache, vertigo, (-) loss of consciousness, or loss of sensation. PSYCHIATRIC: No depression or anxiety. ENDOCRINE: No increased thirst. No abnormal weight change. HEMATOLOGIC/LYMPHATIC: No anemia, easy bleeding, or history of blood clots. ALLERGIC/IMMUNOLOGIC: No hives or skin allergy. No latex allergy. GENERAL: The patient is awake, alert, and fully oriented, in mild distress. HEAD: Normal with no signs of trauma. EYES: Pupils equal, round and reactive to light, extraocular movements intact, sclera anicteric, conjunctiva clear. ENT: Ears normal, nares patent, oropharynx clear without exudates. Moist mucous membranes. NECK: Normal range of motion, supple without lymphadenopathy, JVD, or masses. LUNGS: Breath sounds equal, clear to auscultation bilaterally. No wheezes, and no crackles. HEART: Regular rate and rhythm, normal S1 and S2 without murmur, rub. ABDOMEN: Soft, nontender, normoactive bowel sounds. No guarding, no rebound. No masses. EXTREMITIES: Normal range of motion, no edema. No clubbing or cyanosis. No cords, erythema, or tenderness. NEUROLOGICAL: Cranial nerves II through XII grossly intact. Normal speech, tandem gait abnormal, no meningeal signs, cerebellar function intact PSYCH: Normal mood, normal affect. SKIN: Warm, Dry, normal turgor, no rashes or lesions noted. Past History - Past Medical History Allergies/Adverse Reactions: Allergies Allergy/AdvReac Type Severity Reaction Status Date / Time No Known Allergies Allergy Verified 07/11/19 18:26 Home Medications: Ambulatory Orders Metformin HCl [Glucophage] 500 mg PO BID 05/22/19 COPD: No - Surgical History Abdominal Surgery: Yes (hernia) - Suicide/Smoking/Psychosocial Hx Smoking History: Never smoked Hx Alcohol Use: No Drug/Substance Use Hx: No *Physical Exam - Vital Signs Last Vital Signs Temp Pulse Resp BP Pulse Ox 98 F 81 18 139/86 99 07/11/19 18:24 07/11/19 18:24 07/11/19 18:24 07/11/19 18:24 07/11/19 18:24 ED Treatment Course - LABORATORY CBC & Chemistry Diagram: 07/11/19 20:14 07/11/19 20:14 Medical Decision Making - Medical Decision Making 07/11/19 19:15 Patient is a 53 year old male streaking of hernia repair and HTN complaints of FELIPE x 1 month. Feels like a weight over his head frontal and occiput associated with anxiety symptoms, dizzinessspinning, lightheaded, weakness, sweating, sensitively to noise. This headache is constant 8/10 pressure, better when in bed resting. He has symptoms mostly when sitting up and even if he holds still feels like things are moving. Occasionally, in the AM he has like a drip in the back of his throat which clears during the day. These symptoms started after his hernina repair on 05/21/19 but did not sandoval to get it evaluated because he thought it would go away. States he went to some hospital to get a head ct but due to insurance did was not able to get it done. Has appointment on Friday07/14/19 with 1st appoint Mimi for his headache but for work related injury. Denies nausea, vomiting, fever, chills. Symptoms consistent with sinus headache, however since patient has no history of headaches will obtain a head CT, accquire labs include cardiac, ekg meds, tylenol, reglan, benadryl reassess 07/11/19 21:28 Feels improved headache is resolved. There are no acute findings on lab work. EKG: CT head Patient Full Name: ANAMARIA BANERJEE Patient Accession No: [id number] Patient : [id number] Reason for Exam: FELIPE Referring Physician: Patient Name: LUIS ENRIQUE CONRAD THIS IS A PRELIMINARY REPORT FROM [facility] EXAM: CT Head wo IMAGES: 143 EXAM DATE AND TIME: 2019-07-11 21:16:51 HISTORY: 53 year old man: Headache. COMPARISON: None TECHNIQUE: Non-contrast axial images were obtained. Coronal and sagittal images were also generated. FINDINGS: There are multiple scattered subcentimeter calcifications seen within the cerebral hemispheres, predominantly within the cerebral sulci, or on surfaces of the cortex, suggesting old calcified granulomas within the sub arachnoid tissues, likely from a inflammatory process in the past. The cerebral sulci and ventricles are normal in size. There are no intracranial hemorrhages, extra-axial fluid collections or evidence of an intra-axial mass lesion. There is no evidence of an acute or chronic ischemic lesion at this time. Orbital and petrous structures, cerebellopontine angles, and posterior fossa appear unremarkable. The paranasal and mastoid sinuses are clear. IMPRESSION: Multiple scattered subcentimeter calcifications seen within the cerebral hemispheres, predominantly within the cerebral sulci, or on surfaces of the cortex, suggesting old calcified granulomas within the sub arachnoid tissues, likely from a inflammatory process in the past. The study is otherwise unremarkable. No intracranial hemorrhages, extra-axial fluid collections or intra-axial mass lesion. . One or more of the following dose reduction techniques were used: automated exposure control, adjustment of the mA and/or kV according to patient size, use of iterative reconstructive technique. THIS DOCUMENT HAS BEEN ELECTRONICALLY SIGNED Jeff Lee MD. 07/11/2019 22:41 EST M.D. Please call [facility] Manager [phone] ([phone]) with questions. INTERPRETING RADIOLOGIST: Jeff Lee MD Electronically Signed: Jul 11, 2019 10:41PM EDT Case discussed with Dr. Ceron neurology recommends MRI and MRA. Will admit the patient to the hospitalist *DC/Admit/Observation/Transfer Diagnosis at time of Disposition: Unsteady gait Headache Qualifiers: Headache type: unspecified Headache chronicity pattern: acute headache Intractability: intractable Qualified Code(s): R51 - Headache - Discharge Dispostion Condition at time of disposition: Stable Decision to Admit order: Yes - Referrals - Patient Instructions - Post Discharge Activity
[2019-07-11] MEDS ORDERED: METOCLOPRAMIDE HCL INJECTION 10 MG/2 ML VIAL IVPUSH ONE (19:25)
[2019-07-11] MEDS ORDERED: ACETAMINOPHEN 1000 MG/100 ML VIAL (NON FORMULARY) IVPB ONE (19:25)
[2019-07-11] MEDS ORDERED: ACETAMINOPHEN INJECTION 100 ML IVPB ONE (19:54)
[2019-07-11] MEDS ORDERED: METOCLOPRAMIDE HCL INJECTION 10 MG/2 ML VIAL ONE (19:54)
[2019-07-11 20:20] LABS: EOS % 2.1 % (0-4.5); HEMATOCRIT 50.4 % (35.4-49); HEMOGLOBIN 17.6 GM/dL (11.7-16.9); LYMPH % 27.4 % (8-40); MCH 31.1 pg (25.7-33.7); MEAN CELL VOLUME 88.8 fl (80-96); MEAN PLT VOLUME 9.6 fl (7.5-11.1); MONO % 8.4 % (3.8-10.2); NEUT % 61.1 % (42.8-82.8); PLATELET COUNT 174 K/MM3 (134-434); RBC 5.67 M/mm3 (4.00-5.60); RDW 13.1 % (11.9-15.9); WHITE BLOOD COUNT 7.4 K/mm3 (4.0-10.0)
[2019-07-11 20:55] LABS: ALK PHOS 107 U/L (45-117); ANION GAP 8 MMOL/L (8-16); BILIRUBIN,TOTAL 0.5 mg/dL (0.2-1); BLOOD UREA NITROGEN 11.6 mg/dL (7-18); CALCIUM 9.3 mg/dL (8.5-10.1); CHLORIDE 101 mmol/L (98-107); CO2 27 mmol/L (21-32); CREATININE 0.8 mg/dL (0.55-1.3); GLUCOSE,RANDOM 226 mg/dL (74-106); POTASSIUM 3.8 mmol/L (3.5-5.1); SGOT/AST 16 U/L (15-37); SGPT/ALT 27 U/L (13-61); SODIUM 136 mmol/L (136-145); TOT PROT 8.3 g/dl (6.4-8.2)
--- NOTE | 2019-07-11 22:57 | PN ---
Teaching Attending Note ATTENDING PHYSICIAN STATEMENT I saw and evaluated the patient. I reviewed the resident's note and discussed the case with the resident. I agree with the resident's findings and plan as documented. Seen and examined; please refer to resident note for further historical information. Briefly, this is a 53 y/o male presenting to the ER with a CC of headache. He is scheduled to see Dr. Woody in the coming weeks for headaches. VS, labs, imaging reviewed NAD, AAO, resting in bed RRR s1/2 NC AT EOMI PERRLA Lungs CTAB, w/ sym exp NT ND +BS CN2-12 wnl, no fnd. Slight phonophobia elicited, no photophobia evident. Normal mood, appropriate behavior EKG reviewed CT shows prior filiberto holes, b/l maxillary sinusitis ASSESSMENT AND PLAN: Patient presents for headache # Headache -post-op vs. sinusitis vs. migraine vs. tension type; will need further imaging , etc. to refine ddx. MRI/A per neurology. Monitor for improvement of sx. Can try PRN fiorcet and empirically tx for sinusitis. Defer further workup and tx to neurology; appreciate their assistance in the management of this patient. He is scheduled to see Dr. Woody but Dr. Urrutia contacted by ER-will elucidate as to why and ensure he gets appropriate followup # NIDDM with hyperglycemia -Checking A1c, SSI with AC+HS checks # Prior SBO -In 05/2019; no further issues. # Elevated H/H -Also noted on prior admit; checking retics, epo, iron studies Full Code
[2019-07-11] MEDS ORDERED: ACETAMINOPHEN 325 MG TABLET (FP) PO PRN (23:54)
--- NOTE | 2019-07-12 00:25 | HP ---
CHIEF COMPLAINT: Headache PCP: HISTORY OF PRESENT ILLNESS: Patient is a 53 year old male with PMH of NIDDM who presents with headache for one month. Headache is bi-temporal and occipital, constant, and associated with phonophobia. He also complains of occasional dizziness, imbalance, and blurred vision. He denies tinnitus, photophobia, or vertigo. Pt also complains of PND in the am and nasal congestion. 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 Pt had headaches at this time but they eventually subsided. After his hernia repair on 05/21/19, he began experiencing his headaches again. He occasionally experiences night sweats. Denies any nausea, vomiting, fever, chills, neck pain, or neurological symptoms. Pt has no history of neurological problems. ER course was notable for: (1) CT head: multiple scattered calcifications, suggesting old calcified granulomas, likely from an inflammatory process in past (2) (3) Recent Travel: denies PAST MEDICAL HISTORY: DM PAST SURGICAL HISTORY: Hernia repair Filiberto holes Social History: Smoking: denies Alcohol: denies Drugs: denies Family History: Allergies No Known Allergies Allergy (Verified 07/11/19 18:26) HOME MEDICATIONS: Home Medications Medication Instructions Recorded Metformin HCl [Glucophage] 500 mg PO BID 05/22/19 REVIEW OF SYSTEMS CONSTITUTIONAL: Absent: fever, chills, diaphoresis, generalized weakness, malaise, loss of appetite, weight change HEENT: Absent: rhinorrhea, nasal congestion, throat pain, throat swelling, difficulty swallowing, mouth swelling, ear pain, eye pain, visual changes CARDIOVASCULAR: Absent: chest pain, syncope, palpitations, irregular heart rate, lightheadedness , peripheral edema RESPIRATORY: Absent: cough, shortness of breath, dyspnea with exertion, orthopnea, wheezing, stridor, hemoptysis GASTROINTESTINAL: Absent: abdominal pain, abdominal distension, nausea, vomiting, diarrhea, constipation, melena, hematochezia GENITOURINARY: Absent: dysuria, frequency, urgency, hesitancy, hematuria, flank pain, genital pain MUSCULOSKELETAL: Absent: myalgia, arthralgia, joint swelling, back pain, neck pain SKIN: Absent: rash, itching, pallor HEMATOLOGIC/IMMUNOLOGIC: Absent: easy bleeding, easy bruising, lymphadenopathy, frequent infections ENDOCRINE: Absent: unexplained weight gain, unexplained weight loss, heat intolerance, cold intolerance NEUROLOGIC: headache, dizziness, imbalance, blurred vision Absent: focal weakness or paresthesias, dizziness, unsteady gait, seizure, mental status changes, bladder or bowel incontinence PSYCHIATRIC: Absent: anxiety, depression, suicidal or homicidal ideation, hallucinations. PHYSICAL EXAMINATION Vital Signs - 24 hr 07/11/19 18:24 Temperature 98 F Pulse Rate 81 Respiratory 18 Rate Blood Pressure 139/86 O2 Sat by Pulse 99 Oximetry (%) GENERAL: Awake, alert, and fully oriented, in no acute distress. HEAD: Normal with no signs of trauma. EYES: Pupils equal, round and reactive to light, extraocular movements intact, sclera anicteric, conjunctiva clear. No lid lag. EARS, NOSE, THROAT: Ears normal, nares patent, oropharynx clear without exudates. Moist mucous membranes. NECK: Normal range of motion, supple without lymphadenopathy, JVD, or masses. LUNGS: Breath sounds equal, clear to auscultation bilaterally. No wheezes, and no crackles. No accessory muscle use. HEART: Regular rate and rhythm, normal S1 and S2 without murmur, rub or gallop. ABDOMEN: Soft, nontender, not distended, normoactive bowel sounds, no guarding, no rebound, no masses. No hepatomegaly or splenomegaly. MUSCULOSKELETAL: Normal range of motion at all joints. No bony deformities or tenderness. No CVA tenderness. UPPER EXTREMITIES: 2+ pulses, warm, well-perfused. No cyanosis. No clubbing. No peripheral edema. LOWER EXTREMITIES: 2+ pulses, warm, well-perfused. No calf tenderness. No peripheral edema. NEUROLOGICAL: Cranial nerves II-XII intact. Normal speech. Mild unseadiness on tandem gait. PSYCHIATRIC: Cooperative. Good eye contact. Appropriate mood and affect. SKIN: Warm, dry, normal turgor, no rashes or lesions noted, normal capillary refill. Laboratory Results - last 24 hr CBC, BMP 07/11/19 20:14 07/11/19 20:14 ASSESSMENT/PLAN: Patient is a 53 year old male with PMH of NIDDM who presents with bitemporal and occipital headache for one month. #Headache Tension type vs. sinusitis vs. migraine vs. post-op vs. TMJ CT head: multiple scattered calcifications, suggesting old calcified granulomas, likely from an inflammatory process MRI/A in am, per neurology (Dr. Woody), for further evaluation of ddx Starting fiorcet prn for pain control #NIDDM Pt on metformin at home, not compliant with meds Hgb A1C: 8.0% Starting on SSI TIDAC Frequent FSG monitoring #Elevated H/H Hgb: 17.6, Hct: 50.4 Elevated on prior admission as well Sending for EPO, reticulocytes, iron studies, B12 #FEN No standing fluids for now Diabetic diet #DVT ppx Lovenox 40mg SQ #Dispo Full code Visit type - Emergency Visit Emergency Visit: Yes ED Registration Date: 07/11/19 Care time: The patient presented to the Emergency Department on the above date and was hospitalized for further evaluation of their emergent condition. - New Patient This patient is new to me today: Yes Date on this admission: 07/13/19 - Critical Care Critical Care patient: No ATTENDING PHYSICIAN STATEMENT I saw and evaluated the patient. I reviewed the resident's note and discussed the case with the resident. I agree with the resident's findings and plan as documented. SUBJECTIVE: OBJECTIVE: ASSESSMENT AND PLAN:
[2019-07-12 04:15] VITALS: BMI 29.7
[2019-07-12] MEDS: ACETAMINOPHEN/CAFFEINE/BUTALBITAL 1 TAB PO PRN ×3 (05:51→20:42)
[2019-07-12] MEDS: INSULIN SLIDING SCALE (NOVOLOG) 1 VIAL SQ SCH ×4 (06:02→23:04)
[2019-07-12 07:40] LABS: BASO % 1.2 % (0-2.0); EOS % 3.6 % (0-4.5); HEMATOCRIT 45.2 % (35.4-49); HEMOGLOBIN 16.1 GM/dL (11.7-16.9); LYMPH % 30.3 % (8-40); MCH 31.3 pg (25.7-33.7); MCHC 35.6 g/dl (32.0-35.9); MEAN CELL VOLUME 87.8 fl (80-96); MEAN PLT VOLUME 9.4 fl (7.5-11.1); NEUT % 55.9 % (42.8-82.8); PLATELET COUNT 147 K/MM3 (134-434); RBC 5.15 M/mm3 (4.00-5.60); RDW 12.9 % (11.9-15.9); WHITE BLOOD COUNT 5.9 K/mm3 (4.0-10.0)
[2019-07-12 08:18] LABS: ALBUMIN 3.4 g/dl (3.4-5.0); BILIRUBIN,TOTAL 0.7 mg/dL (0.2-1); BLOOD UREA NITROGEN 9.3 mg/dL (7-18); CALCIUM 8.5 mg/dL (8.5-10.1); CREATININE 0.8 mg/dL (0.55-1.3); POTASSIUM 3.8 mmol/L (3.5-5.1); TOT PROT 6.8 g/dl (6.4-8.2)
[2019-07-12] MEDS ORDERED: PROCHLORPERAZINE INJECTION 10 MG/2 ML VIAL IVPB PRN (09:23)
[2019-07-12] MEDS ORDERED: diphenhydrAMINE HCL 25 MG CAPSULE (FP) PO PRN (09:24)
--- NOTE | 2019-07-12 09:32 | CON.NEURO ---
Consult - Alcohol/Substance Use Hx Alcohol Use: No - Smoking History Smoking history: Never smoked Home Medications - Allergies Allergies/Adverse Reactions: Allergies Allergy/AdvReac Type Severity Reaction Status Date / Time No Known Allergies Allergy Verified 07/11/19 18:26 - Home Medications Home Medications: Ambulatory Orders Metformin HCl [Glucophage] 500 mg PO BID 05/22/19 Physical Exam-Neuro Vital Signs: Vital Signs Temperature 97.7 F 07/12/19 03:00 Pulse Rate 50 L 07/12/19 03:00 Respiratory Rate 18 07/12/19 03:00 Blood Pressure 108/72 07/12/19 03:00 O2 Sat by Pulse Oximetry (%) 97 07/12/19 03:00 Labs: CBC, BMP 07/12/19 06:50 07/12/19 06:50 Assessment/Plan cc Worsenign of Headache for five days HPI 53 year old male history of DM, recent hernia repair. He copalin of bilateral headhace for four years following a work related injury. Recently he had dizziness, and imabalnce and blurred vision. Patient has eye exam done recently was prescribed glassed. Patient has ct scan of brain showed old calcification. Patient denies any focal neurological symptoms. He is afebrile and he was given fiorecet with partial relief PAST MEDICAL HISTORY: DM PAST SURGICAL HISTORY: Hernia repair Starks holes Social History: Smoking: denies Alcohol: denies Drugs: denies Family History: Allergies No Known Allergies Allergy (Verified 07/11/19 18:26) HOME MEDICATIONS: Home Medications Medication Instructions Recorded Metformin HCl [Glucophage] 500 mg PO BID 05/22/19 ROS, FH reviewed in chart NEUROLOGICAL EXAMINATION Alert oriented x 3, speech is normal afebrile , neck is supple eomi, pupils reactive, no facial asymmtry moving all extremity sensation is normal gait and coordination is noraml ct head is reviewed showed there old calcifications were seen Assessment/Plan 53 year old male hisotry of work related injury and came with worsenign of old headache, pateint has recent eye exam done and was prescribed glasses, not clear if he knew about calcification in past. Neuro exam is noraml. Most likley he has tension and post trauamtic headhace Plan: mri of brain mra of brain as previously planned - no further testing or treatment for calcifications, indicative of heal neurocysticercosis - please give iv toradol,benadryl and compazine prin - start nortripytline 25 mg qhs follow up on MR results case discussed [facility] Resident team Thanking you so much Koko Urrutia MD
[2019-07-12] MEDS: ENOXAPARIN NA (PORCINE) 40 MG/0.4 ML DISP.SYRIN SQ SCH (10:20)
--- NOTE | 2019-07-12 10:24 | PN ---
Physical Exam: SUBJECTIVE: Patient seen and examined headache slightly better denies nay fever, chills, N/V today denies any cp, sob OBJECTIVE: Vital Signs Period Temp Pulse Resp BP Sys/Vinson Pulse Ox Last 24 Hr 97.7 F-98 F 50-81 16-18 108-139/72-86 97-99 GENERAL: AAOx3 in NAD HEAD: NC/AT EYES: EOMI, Conjunctiva clear, sclera anicteric ENT: moist mucous membrane NECK: Supple, no JVD LUNGS: CTA B/L, no crackles no wheezing no accessory muscle use. HEART: RRR, NSR, normal s1, s2, no M/R/G ABDOMEN: Soft, ND, NT, +BS 4 Q, no CVA Tenderness LOWER EXTREMITIES: no edema, +2DP pulse, NEUROLOGICAL: No focal deficit. Normal speech. gait not observed. PSYCHIATRIC: Cooperative. Good eye contact. Appropriate mood and affect. SKIN: Warm, dry, Laboratory Results - last 24 hr 07/11/19 07/11/19 07/12/19 20:14 20:14 01:45 WBC 7.4 RBC 5.67 H Hgb 17.6 H Hct 50.4 H D MCV 88.8 MCH 31.1 MCHC 35.0 RDW 13.1 Plt Count 174 D MPV 9.6 Absolute Neuts (auto) 4.5 Neutrophils % 61.1 Lymphocytes % 27.4 D Monocytes % 8.4 Eosinophils % 2.1 Basophils % 1.0 Nucleated RBC % 0 ESR Retic Count Sodium 136 Potassium 3.8 Chloride 101 Carbon Dioxide 27 Anion Gap 8 BUN 11.6 Creatinine 0.8 Est GFR (CKD-EPI)AfAm 119.88 Est GFR (CKD-EPI)NonAf 103.43 POC Glucometer Random Glucose 226 H Hemoglobin A1c % Calcium 9.3 Iron TIBC Iron Saturation Unsaturated IBC Total Bilirubin 0.5 AST 16 ALT 27 Alkaline Phosphatase 107 Creatine Kinase 46 Troponin I < 0.02 C-Reactive Protein < 0.3 Total Protein 8.3 H Albumin 4.0 Vitamin B12 TSH Free T4 07/12/19 07/12/19 07/12/19 01:45 01:45 01:45 WBC RBC Hgb Hct MCV MCH MCHC RDW Plt Count MPV Absolute Neuts (auto) Neutrophils % Lymphocytes % Monocytes % Eosinophils % Basophils % Nucleated RBC % ESR 6 Retic Count Sodium Potassium Chloride Carbon Dioxide Anion Gap BUN Creatinine Est GFR (CKD-EPI)AfAm Est GFR (CKD-EPI)NonAf POC Glucometer Random Glucose Hemoglobin A1c % Calcium Iron 136 TIBC 332 Iron Saturation 40 H Unsaturated IBC 196 L Total Bilirubin AST ALT Alkaline Phosphatase Creatine Kinase Troponin I C-Reactive Protein Total Protein Albumin Vitamin B12 425 Cancelled TSH 4.05 H Free T4 07/12/19 07/12/19 07/12/19 01:45 01:45 01:45 WBC RBC Hgb Hct MCV MCH MCHC RDW Plt Count MPV Absolute Neuts (auto) Neutrophils % Lymphocytes % Monocytes % Eosinophils % Basophils % Nucleated RBC % ESR Retic Count 1.45 Sodium Potassium Chloride Carbon Dioxide Anion Gap BUN Creatinine Est GFR (CKD-EPI)AfAm Est GFR (CKD-EPI)NonAf POC Glucometer Random Glucose Hemoglobin A1c % 8.0 H Calcium Iron TIBC Iron Saturation Unsaturated IBC Total Bilirubin AST ALT Alkaline Phosphatase Creatine Kinase Troponin I C-Reactive Protein Total Protein Albumin Vitamin B12 TSH Cancelled Free T4 07/12/19 07/12/19 07/12/19 05:48 06:50 06:50 WBC 5.9 RBC 5.15 Hgb 16.1 Hct 45.2 MCV 87.8 MCH 31.3 MCHC 35.6 RDW 12.9 Plt Count 147 MPV 9.4 Absolute Neuts (auto) 3.3 Neutrophils % 55.9 Lymphocytes % 30.3 Monocytes % 9.0 Eosinophils % 3.6 Basophils % 1.2 Nucleated RBC % 0 ESR Retic Count Sodium 140 Potassium 3.8 Chloride 106 Carbon Dioxide 25 Anion Gap 9 BUN 9.3 Creatinine 0.8 Est GFR (CKD-EPI)AfAm 119.88 Est GFR (CKD-EPI)NonAf 103.43 POC Glucometer 176 Random Glucose 179 H Hemoglobin A1c % Calcium 8.5 Iron TIBC Iron Saturation Unsaturated IBC Total Bilirubin 0.7 AST 17 ALT 25 Alkaline Phosphatase 74 Creatine Kinase Troponin I C-Reactive Protein Total Protein 6.8 Albumin 3.4 Vitamin B12 TSH Free T4 1.07 Active Medications Generic Name Dose Route Start Last Admin Trade Name Freq PRN Reason Stop Dose Admin Acetaminophen/Butalbital/Caffeine 1 tablet 07/12/19 00:17 07/12/19 05:51 Fioricet - PO 1 tablet Q6H PRN Administration HEADACHE Diphenhydramine HCl 25 mg 07/12/19 09:24 Benadryl - PO Q6H PRN FOR ITCHING Enoxaparin Sodium 40 mg 07/12/19 10:00 07/12/19 10:20 Lovenox - SQ 40 mg DAILY JODIE Administration Sodium Chloride 1,000 mls @ 100 mls/hr 07/12/19 07:45 Normal Saline - IV ASDIR JODIE Insulin Aspart 1 vial 07/12/19 07:00 07/12/19 06:02 Novolog Vial Sliding Scale - SQ 2 units ACHS JODIE Administration Protocol Ketorolac Tromethamine 10 mg 07/12/19 12:00 Toradol PO 07/17/19 11:59 Q6HPO JODIE Nortriptyline HCl 25 mg 07/12/19 14:00 Pamelor - PO TID JODIE Prochlorperazine Edisylate 10 mg 07/12/19 09:23 Compazine Injection - IVPB Q4H PRN NAUSEA AND/OR VOMITING CBC, BMP 07/12/19 06:50 07/12/19 06:50 ASSESSMENT/PLAN: 53 year old male with h.o DM presented with 5 days history of worsening headache bitemporal and occipital with some N/V admitted to M/S for further evaluation. 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 # FEN * NS @ 100 CC/hr * Monitor lytes * DIabetic diet # proph : Lovenox 40 SQ daily # dispo: if MRI/MRA are normal can be dc home and follow with neurology out pt. Visit type - Emergency Visit Emergency Visit: Yes ED Registration Date: 07/11/19 Care time: The patient presented to the Emergency Department on the above date and was hospitalized for further evaluation of their emergent condition. - New Patient This patient is new to me today: Yes Date on this admission: 07/12/19 - Critical Care Critical Care patient: No - Discharge Referral Referred to [facility] No ATTENDING PHYSICIAN STATEMENT I saw and evaluated the patient. I reviewed the resident's note and discussed the case with the resident. I agree with the resident's findings and plan as documented. SUBJECTIVE: OBJECTIVE: ASSESSMENT AND PLAN:
[2019-07-12] MEDS: SODIUM CHLORIDE 1,000 ML IV SCH (11:06)
--- NOTE | 2019-07-12 11:06 | EKG ---
Test Reason : Blood Pressure : / mmHG Vent. Rate : 054 BPM Atrial Rate : 054 BPM P-R Int : 164 ms QRS Dur : 096 ms QT Int : 460 ms P-R-T Axes : 013 -30 -02 degrees QTc Int : 436 ms SINUS BRADYCARDIA LEFT AXIS DEVIATION ABNORMAL ECG WHEN COMPARED WITH ECG OF 22-MAY-2019 00:27, NO SIGNIFICANT CHANGE WAS FOUND Confirmed by REMBERTO LEYVA MD ([id number]) on 07/12/2019 11:06:10 AM Referred By: Confirmed By:REMBERTO LEYVA MD
[2019-07-12] MEDS: KETOROLAC TROMETHAMINE 10 MG TABLET PO SCH ×2 (12:10→17:47)
[2019-07-12] MEDS ORDERED: NORTRIPTYLINE HCL 25 MG CAPSULE PO SCH ×2 (14:00→22:00)
--- NOTE | 2019-07-12 15:26 | PN ---
Teaching Attending Note Name of Resident: Jonah Foreman ATTENDING PHYSICIAN STATEMENT I saw and evaluated the patient. I reviewed the resident's note and discussed the case with the resident. I agree with the resident's findings and plan as documented. SUBJECTIVE: Mr Colindres says he is feeling better, with some slight pain in his neck and back of head. No cp, sob, n/v. OBJECTIVE: Last Vital Signs Temp Pulse Resp BP Pulse Ox 36.8 C 77 18 131/71 94 L 07/12/19 13:33 07/12/19 13:33 07/12/19 13:33 07/12/19 13:33 07/12/19 09:00 Gen: nad Pulm: ctab w/o w/r/r CV: rrr w/o m/r/g Abd: +bs, s/nt/nd Ext: no c/c/e CBC, BMP 07/12/19 06:50 07/12/19 06:50 ASSESSMENT AND PLAN: -headache controlled -appreciate neurology assistance -follow up MRI -if MRI normal, can discharge on oral headache control medications -continue current management Problem List - Problems (1) Headache Code(s): R51 - HEADACHE Qualifiers: Headache type: unspecified Headache chronicity pattern: acute headache Intractability: intractable Qualified Code(s): R51 - Headache (2) Diabetes Code(s): E11.9 - TYPE 2 DIABETES MELLITUS WITHOUT COMPLICATIONS Qualifiers: Diabetes mellitus type: type 2
[2019-07-12] MEDS ORDERED: KETOROLAC TROMETHAMINE 10 MG TABLET PO PRN (18:47)
[2019-07-12] MEDS ORDERED: PT OWN MED DRAWER 7, Y5N ONE (20:40)
[2019-07-13] MEDS: INSULIN SLIDING SCALE (NOVOLOG) 1 VIAL SQ SCH (06:12)
[2019-07-13] MEDS: ACETAMINOPHEN/CAFFEINE/BUTALBITAL 1 TAB PO PRN (06:15)
[2019-07-13 08:08] LABS: BLOOD UREA NITROGEN 9.4 mg/dL (7-18); CALCIUM 8.6 mg/dL (8.5-10.1); CREATININE 0.7 mg/dL (0.55-1.3); POTASSIUM 3.7 mmol/L (3.5-5.1)
--- NOTE | 2019-07-13 08:50 | PN ---
Progress Note (short form) - Note Progress Note: 53 year old male history of DM, recent hernia repair. He copalin of bilateral headhace for four years following a work related injury. Recently he had dizziness, and imabalnce and blurred vision. Patient has eye exam done recently was prescribed glassed. Patient has ct scan of brain showed old calcification. Patient denies any focal neurological symptoms. He is afebrile and he was given fiorecet with partial relief. Headahce is much better , mri of brain and mra of brain unremarkable. NEUROLOGICAL EXAMINATION Alert oriented x 3, speech is normal afebrile , neck is supple eomi, pupils reactive, no facial asymmtry moving all extremity sensation is normal gait and coordination is noraml ct head is reviewed showed there old calcifications were seen Assessment/Plan 53 year old male history of work related injury and came with worsening of old headache, patient has recent eye exam done and was prescribed glasses, not clear if he knew about calcification in past. Neuro exam is normal Post traumatic vs Tension headache. Plan: mri of brain and mra of brain i snormal - fiorecet prn - continue nortripytline 25 mg qhs follow up outpatient Thanking you so much Koko Urrutia MD
[2019-07-13] MEDS: SODIUM CHLORIDE 1,000 ML IV SCH (10:53)
[2019-07-13] MEDS: ENOXAPARIN NA (PORCINE) 40 MG/0.4 ML DISP.SYRIN SQ SCH (11:08)
[2019-07-13 11:13] VITALS: BP 129/78; PULSE 68; TEMP 98.3
--- NOTE | 2019-07-13 13:11 | DS ---
Physical Exam: SUBJECTIVE: Patient seen and examined headache improved , MRI/MRA brain normal with no acute patholohu stable to DC and follow up with Dr Le tomorrow as he has an appointment. OBJECTIVE: Vital Signs Period Temp Pulse Resp BP Sys/Vinson Pulse Ox Last 24 Hr 97.8 F-98.3 F 59-77 18-18 109-131/61-78 95-95 PHYSICAL EXAM GENERAL: AAOx3 in NAD HEAD: NC/AT EYES: EOMI, Conjunctiva clear, sclera anicteric ENT: moist mucous membrane NECK: Supple, no JVD LUNGS: CTA B/L, no crackles no wheezing no accessory muscle use. HEART: RRR, NSR, normal s1, s2, no M/R/G ABDOMEN: Soft, ND, NT, +BS 4 Q, no CVA Tenderness LOWER EXTREMITIES: no edema, +2DP pulse, NEUROLOGICAL: No focal deficit. Normal speech. gait not observed. PSYCHIATRIC: Cooperative. Good eye contact. Appropriate mood and affect. SKIN: Warm, dry, LABS Laboratory Results - last 24 hr 07/12/19 07/12/19 07/12/19 01:45 16:48 23:02 Sodium Potassium Chloride Carbon Dioxide Anion Gap BUN Creatinine Est GFR (CKD-EPI)AfAm Est GFR (CKD-EPI)NonAf POC Glucometer 212 169 Random Glucose Calcium Erythropoietin 10.0 07/13/19 07/13/19 06:10 06:49 Sodium 140 Potassium 3.7 Chloride 106 Carbon Dioxide 24 Anion Gap 9 BUN 9.4 Creatinine 0.7 Est GFR (CKD-EPI)AfAm 126.64 Est GFR (CKD-EPI)NonAf 109.27 POC Glucometer 156 Random Glucose 152 H Calcium 8.6 Erythropoietin CBC, BMP 07/12/19 06:50 07/13/19 06:49 HOSPITAL COURSE: Date of Admission:07/11/19 Date of Discharge: 07/13/19 53 year old male with h.o DM presented with 5 days history of worsening headache bitemporal and occipital with some N/V admitted to M/S for further evaluation. headache likely tension headache ,all images come back normal except old barynchymal calcification due to old healed neuro cystecyrcosis, pt treated with Fiorecent , IV toradol, IV compazin and Benadryl PRN, and IV fluids. pt is stable to discharged and will follow up with DR Le tomorrow as he has an appointment already. pt discharged on fiorecent PRN and nortriptilin HS Minutes to complete discharge: 35 Discharge Summary Reason For Visit: HEADACHE/NAUSEA Condition: Stable - Instructions Diet, Activity, Other Instructions: you presented to the hospital due to sever headache , all work up and images come back negative , it s likely related to tension headache or from previous accident you have . you will be discharged home with tow new medication Fiorecet every 6 hours as needed for pain Nortriptilyne 25 daily at bed time. Please follow up with your primary within one week Please follow uo with Neurologist Dr Le tomorrow If you develop fever, chills, chest pain or worsening symptoms please return to Emergency room. Referrals: Lizandro Mendoza MD [Staff Physician] - Renita Zimmer MD [Non Staff, Medical] - Radha Le MD [Staff Physician] - Disposition: HOME - Home Medications Comprehensive Discharge Medication List: Ambulatory Orders Metformin HCl [Glucophage] 500 mg PO BID 05/22/19 Acetaminophen/Caffeine/Butalb [Fioricet -] 1 tab PO Q6H PRN #30 tablet MDD 4 tabs 07/13/19 Nortriptyline HCl [Pamelor -] 25 mg PO HS #30 capsule 07/13/19 This patient is new to me today: No Emergency Visit: Yes ED Registration Date: 07/11/19 Care time: The patient presented to the Emergency Department on the above date and was hospitalized for further evaluation of their emergent condition. Critical Care patient: No - Discharge Referral Referred to [facility] No ATTENDING PHYSICIAN STATEMENT I saw and evaluated the patient. I reviewed the resident's note and discussed the case with the resident. I agree with the resident's findings and plan as documented. SUBJECTIVE: OBJECTIVE: ASSESSMENT AND PLAN:
--- NOTE | 2019-07-13 14:13 | PN ---
Teaching Attending Note Name of Resident: Jonah Foreman ATTENDING PHYSICIAN STATEMENT I saw and evaluated the patient. I reviewed the resident's note and discussed the case with the resident. I agree with the resident's findings and plan as documented. SUBJECTIVE: Mr Jens Najera complains of headache and some dizziness but otherwise without complaint. No cp, sob, n/v. OBJECTIVE: Last Vital Signs Temp Pulse Resp BP Pulse Ox 36.8 C 68 18 129/78 95 07/13/19 10:00 07/13/19 10:00 07/13/19 10:00 07/13/19 10:00 07/13/19 09:00 Gen: nad Pulm: ctab w/o w/r/r CV: rrr w/o m/r/g Abd: +bs, s/nt/nd Ext: no c/c/e CBC, BMP 07/12/19 06:50 07/13/19 06:49 Mr Jens Najera is a pleasant 53 year old male who came in with headache. He was admitted and seen by neurology. He was given benadryl and toradol. He underwent an MRI of the head which was normal. He can be transitioned to oral headache control and be discharged. He has follow up with Dr Le tomorrow. Problem List - Problems (1) Headache Code(s): R51 - HEADACHE Qualifiers: Headache type: unspecified Headache chronicity pattern: acute headache Intractability: intractable Qualified Code(s): R51 - Headache (2) Diabetes Code(s): E11.9 - TYPE 2 DIABETES MELLITUS WITHOUT COMPLICATIONS Qualifiers: Diabetes mellitus type: type 2
== END 2019-07-13 12:23 | disposition home or self-care (01) | DRG 54 ==
LOC: JER 18:22 → JERBED 23:27 → OBSVTOIN 23:27 → J7W 07-12 03:10
PROVIDERS: ADMIT Internal Medicine; ATTEND Internal Medicine
DX: G44.209 Tension-type headache, unspecified, not intractable (principal); Z91.14 Patient's other noncompliance with medication regimen; E11.65 Type 2 diabetes mellitus with hyperglycemia; E86.0 Dehydration; G06.0 Intracranial abscess and granuloma
CPT/HCPCS: 36415; 70450-TC; 70544-TC; 70551-TC; 80048; 80053; 82550; 82607; 82668; 82962; 83036; 83540; 83550; 84439; 84443; 84484; 85025; 85044; 85651; 86140; 93005; 93010; 99285-25; J0131; J7030

== ENCOUNTER 2019-08-24 10:18 | Emergency (ER) | payer OTHER ==
[2019-08-24 10:38] VITALS: BP 132/81; PULSE 81; TEMP 98.2; BMI 29.7
[2019-08-24] MEDS ORDERED: ACETAMINOPHEN 1000 MG/100 ML VIAL (NON FORMULARY) IVPB ONE (11:38)
[2019-08-24] MEDS ORDERED: METOCLOPRAMIDE HCL INJECTION 10 MG/2 ML VIAL IVPB ONE (11:38)
[2019-08-24] MEDS ORDERED: SODIUM CHLORIDE 1,000 ML IV STA (11:38)
[2019-08-24] MEDS ORDERED: KETOROLAC TROMETHAMINE 30 MG/1 ML VIAL IVPUSH ONE (11:38)
[2019-08-24] MEDS ORDERED: ACETAMINOPHEN INJECTION 100 ML IVPB ONE (11:43)
[2019-08-24] MEDS ORDERED: KETOROLAC TROMETHAMINE 30 MG/1 ML VIAL ONE (11:43)
[2019-08-24] MEDS ORDERED: diphenhydrAMINE HCL 12.5 MG/5 ML BULK BOTTLE ONE (11:43)
[2019-08-24] MEDS ORDERED: METOCLOPRAMIDE HCL INJECTION 10 MG/2 ML VIAL ONE (12:34)
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
[2019-08-24] MEDS ORDERED: methylPREDNISolone NA SUCC 125 MG/2 ML VIAL IVPUSH ONE (13:33)
[2019-08-24] MEDS ORDERED: methylPREDNISolone NA SUCC 125 MG/2 ML VIAL ONE (13:35)
== END 2019-08-24 15:03 | disposition home or self-care (01) ==
LOC: JER 10:18 → SUPCPDRO 10:18 → JER 15:03
PROC: 3E0337Z Introduction of Electrolytic and Water Balance Substance into Peripheral Vein, Percutaneous Approach (ICD-10-PCS; principal; 2019-08-24)
PROC: 3E033NZ Introduction of Analgesics, Hypnotics, Sedatives into Peripheral Vein, Percutaneous Approach (ICD-10-PCS; 2019-08-24)
PROC: 3E0333Z Introduction of Anti-inflammatory into Peripheral Vein, Percutaneous Approach (ICD-10-PCS; 2019-08-24)
PROC: 3E033GC Introduction of Other Therapeutic Substance into Peripheral Vein, Percutaneous Approach (ICD-10-PCS; 2019-08-24)
PROC: 3E033GC Introduction of Other Therapeutic Substance into Peripheral Vein, Percutaneous Approach (ICD-10-PCS; 2019-08-24)
DX: R51 Headache (principal); G40.909 Epilepsy, unspecified, not intractable, without status epilepticus; E11.9 Type 2 diabetes mellitus without complications; Z79.84 Long term (current) use of oral hypoglycemic drugs
CPT/HCPCS: 99281-25; J0131; J7030

== ENCOUNTER 2024-07-14 20:53 | Emergency (ER) | payer OTHER ==
[2024-07-14 21:12] VITALS: BP 129/76; PULSE 92; RESP 16; TEMP 97.8; BMI 27.3
== END 2024-07-15 00:35 | disposition home or self-care (01) ==
LOC: JER 20:53
PROC: 0HQ1XZZ Repair Face Skin, External Approach (ICD-10-PCS; principal; 2024-07-14)
DX: S01.81XA Laceration without foreign body of other part of head, initial encounter (principal); W01.198A Fall on same level from slipping, tripping and stumbling with subsequent striking against other object, initial encounter
CPT/HCPCS: 70450-TC; 72125-TC; 99284-25

== ENCOUNTER 2024-07-21 17:28 | Emergency (ER) | payer OTHER ==
[2024-07-21 17:39] VITALS: BP 128/81; PULSE 84; RESP 20; TEMP 98.2; BMI 27.3
== END 2024-07-21 17:54 | disposition home or self-care (01) ==
LOC: FER 17:28
DX: Z48.02 Encounter for removal of sutures (principal)
CPT/HCPCS: 99281-25